=== PATIENT | female | born 1935 | race Caucasian/White ===

== ENCOUNTER → 2018-11-30 | Outpatient (CLI) | payer MEDICARE ==
--- NOTE | 2018-11-30 22:33 | MR ---
EXAMINATION TYPE: MR brain wo con DATE OF EXAM: 11/30/2018 COMPARISON: NONE HISTORY: Dementia without behavioral disturbance TECHNIQUE: Multiplanar, multisequence imaging of the brain and brainstem is performed without IV cont rast. FINDINGS: Diffusion weighted images demonstrate no evidence of a recent infarct or other diffusion abnormality. There is no worrisome extraaxial fluid collection . There is ventricular and sulcal prominence consis tent with diffuse cerebral atrophy. There are scattered foci of T2 hyperintensity seen throughout the superficial, deep, and the periventricular white matter. Midline structures demonstrate normal morphology. The craniocervical junction appears within normal limits. Normal vascular flow voids are present. The visualized sinuses are clear and the globes are i ntact. IMPRESSION: Moderate generalized cerebral atrophy and mild to moderate chronic small vessel ischemic change.
--- NOTE | 2018-12-01 07:23 | US ---
EXAMINATION TYPE: US carotid duplex BILAT DATE OF EXAM: 11/30/2018 COMPARISON: NONE CLINICAL HISTORY: F03.90 Dementia without behavioral disturbance. Dementia. HTN. Hyperlipidemia. EXAM MEASUREMENTS: RIGHT: Peak Systolic Velocity (PSV) cm/sec ----- Right CCA: 61.6 ----- Right ICA: 55.2 ----- Right ECA: 61.6 ICA/CCA ratio: 0.9 RIGHT: End Diastole cm/sec ----- Right CCA: 0.0 ----- Right ICA: 14.0 ----- Right ECA: 1.9 LEFT: Peak Systolic Velocity (PSV) cm/sec ----- Left CCA: 59.8 ----- Left ICA: 69.5 ----- Left ECA: 70.2 ICA/CCA ratio: 1.2 LEFT: End Diastole cm/sec ----- Left CCA: 10.1 ----- Left ICA: 17.5 ----- Left ECA: 0.0 VERTEBRALS (direction of flow): Right Vertebral: Antegrade Left Vertebral: Antegrade Rhythm: Arrhythmia Minimal atherosclerotic changes seen. No elevated velocities obtained. No significant stenosis seen. IMPRESSION: No evidence for hemodynamically significant stenosis. Criteria for Assigning % of Stenosis / Diameter reduction (Estimation based on the indirect measurements of the internal carotid artery velocities (ICA PSV). 1. Normal (no stenosis)=ICA PSV < 125 cm/s: ratio < 2.0: ICA EDV<40 cm/s. 2. Less than 50% stenosis=ICA PSV < 125 cm/s: ratio < 2.0: ICA EDV<40 cm/s. 3. 50 to 69% stenosis=ICA PSV of 125 to 230 cm/s: ration 2.0 ? 4.0: ICA EDV 40-100 cm/s. 4. Greater than 70% stenosis to near occlusion= ICA PSV > 230 cm/s: ratio > 4.0: ICA EDV > 100 cm/s. 5. Near occlusion= ICA PSV velocities may be low or undetectable: variable ratio and ICA EDV. 6. Total occlusion=unable to detect flow.
== END ==
LOC: RADMRIMAIN 16:42
PROVIDERS: ATTEND Physician Assistant Medical
DX: G31.9 Degenerative disease of nervous system, unspecified (principal); I67.82 Cerebral ischemia; F02.80 Dementia in other diseases classified elsewhere, unspecified severity, without behavioral disturbance, psychotic disturbance, mood disturbance, and anxiety; I10 Essential (primary) hypertension; E78.2 Mixed hyperlipidemia; R27.9 Unspecified lack of coordination
CPT/HCPCS: 70551; 93880

== ENCOUNTER → 2022-05-26 | Outpatient (CLI) | payer MEDICARE ==
--- NOTE | 2022-05-26 12:11 | XR ---
EXAMINATION TYPE: XR chest 2V DATE OF EXAM: 05/26/2022 COMPARISON: NONE HISTORY: Shortness of breath TECHNIQUE: Frontal and lateral views of the chest are obtained. FINDINGS: Scattered senescent parenchymal changes noted. Hyperinflation compatible with COPD. No evidence for infiltrate. No evidence for atelectasis. Heart size is stable. Large fixed hiatal hernia. Mediastinal structures are stable and grossly unremarkable. No evidence for hilar prominence. Degenerative changes dorsal spine. IMPRESSION: 1. No evidence for acute pulmonary disease.
== END | disposition home or self-care (01) ==
LOC: RADXRYALE 10:46
PROVIDERS: ATTEND Physician Assistant Medical
DX: R05.9 Cough, unspecified (principal)
CPT/HCPCS: 71046

== ENCOUNTER → 2022-07-14 | Outpatient (CLI) | payer MEDICARE ==
--- NOTE | 2022-07-15 09:53 | MR ---
EXAMINATION TYPE: MR angio head wo con, MR brain wo/w con DATE OF EXAM: 07/14/2022 3:58 PM CLINICAL INDICATION:Female, 86 years old with history of F03.90 DEMENTIA; COMPARISON: MR brain 11/30/2018. Technical: MRA Brain: 3-D [id number] Axial with MIP reconstruction. MRI Brain: Multi planar, multi sequence imaging was performed through the brain including: T1, T2, In version recovery, susceptibility weighted imaging and gradient echo imaging and Diffusion weighted im aging. The patient was then given intravenous contrast and multi planar, T1 fat-saturation images wer e obtained. IV Contrast: None 6 ml cc Gadavist Findings: MRA BRAIN: Vertebral arteries: The vertebral arteries are patent vertebral arteries are codominant. Basilar artery: The basilar artery is intact. The basilar artery bifurcation is normal. Internal Carotid arteries: The cervical, petrous, cavernous and supraclinoid segments are normal. RAFFAELE: Patent with no evidence of aneurysm. ACOM: Present without evidence of aneurysm. MCA: Patent with no evidence of aneurysm. SPOUT POSITIONER: Patent with no evidence of aneurysm. PCOM: Hypoplastic right common normal caliber left. MRI BRAIN: The edgar-white junctions, ventricular system, basal cisterns appear unremarkable. Diffusion-weighted imaging shows no evidence of restricted diffusion to suggest acute/subacute infarct. Intracranial art erial flow voids are maintained. Midline structures show no abnormality. Scattered foci of high T2 si gnal intensity are seen within the periventricular white matter. The susceptibility weighted images d o not reveal any evidence for micro-hemorrhage. After administration of gadolinium, no abnormal enhan cement is seen. The bone marrow signal is within normal limits. Paranasal sinuses and mastoid air cells: Mild scattered paranasal sinus disease. Visualized orbits: Bilateral aphakia IMPRESSION: 1. No evidence of intracranial mass, acute/subacute infarct, or abnormal enhancement. 2. Nonspecific white matter changes, likely related to small vessel ischemic disease 3. No evidence of aneurysm or significant stenosis.
== END | disposition home or self-care (01) ==
LOC: RADMRIMAIN 15:08
PROVIDERS: ATTEND Psychiatry & Neurology Neurology
DX: G93.89 Other specified disorders of brain (principal); F03.90 Unspecified dementia, unspecified severity, without behavioral disturbance, psychotic disturbance, mood disturbance, and anxiety
CPT/HCPCS: 70544; 70553; A9585

== ENCOUNTER 2022-12-26 12:53 | Emergency (ER) | payer MEDICARE ==
[2022-12-26] MEDS ORDERED: ACETAMINOPHEN TAB 500 MG TAB PO STA (13:40)
--- NOTE | 2022-12-26 13:44 | ED ---
General Adult HPI - General Chief complaint: Extremity Injury, Lower Stated complaint: fall - back pain Time Seen by Provider: 12/26/22 13:08 Source: patient, family, EMS, RN notes reviewed Mode of arrival: EMS Limitations: no limitations - History of Present Illness Initial comments: Patient is a pleasant 87-year-old female presenting to the emergency department following a fall. Incident occurred this morning at senior living. Patient has been there for a few weeks secondary to not being able to take care of herself. No new weakness. Patient denies head injury or loss of consciousness. Patient is a poor historian. Daughter provides majority of history. No new weakness. Patient has discomfort of her lower back. No history of chronic similar problems. Discomfort is improving and now only occurs with movement. Patient has not received pain medication. - Related Data Home Medications Medication Instructions Recorded Confirmed Acetaminophen Tab [Tylenol Tab] 500 mg PO Q8H PRN 12/26/22 12/26/22 Cholecalciferol [Vitamin D3 (25 50 mcg PO DAILY 12/26/22 12/26/22 Mcg = 1000 Iu)] LORazepam [Ativan] 0.25 - 0.5 mg PO BID 12/26/22 12/26/22 Multivit-Min/Iron/Folic/Lutein 1 tab PO DAILY 12/26/22 12/26/22 [Centrum Silver Women Tablet] Omeprazole [PriLOSEC] 20 mg PO DAILY PRN 12/26/22 12/26/22 Rivastigmine 9.5MG/24Hr Patch 1 patch TRANSDERM Q24HR 12/26/22 12/26/22 [Exelon 9.5MG/24Hr Patch] amLODIPine [Norvasc] 7.5 mg PO DAILY 12/26/22 12/26/22 lamoTRIgine [LaMICtal] 100 mg PO BID 12/26/22 12/26/22 lisinopriL [Zestril] 20 mg PO DAILY 12/26/22 12/26/22 traZODone HCL [Desyrel] 25 - 50 mg PO HS 12/26/22 12/26/22 Allergies Allergy/AdvReac Type Severity Reaction Status Date / Time No Known Allergies Allergy Verified 12/26/22 13:43 Review of Systems ROS Statement: Those systems with pertinent positive or pertinent negative responses have been documented in the HPI. ROS Other: All systems not noted in ROS Statement are negative. Constitutional: Denies: fever Eyes: Denies: eye pain ENT: Denies: ear pain Respiratory: Denies: cough Cardiovascular: Denies: chest pain Endocrine: Denies: fatigue Gastrointestinal: Denies: abdominal pain Genitourinary: Denies: dysuria Musculoskeletal: Reports: as per HPI, back pain Neurological: Denies: headache, weakness Past Medical History Past Medical History: Cancer, Dementia Additional Past Medical History / Comment(s): hx of colon cancer Past Surgical History: Joint Replacement Past Psychological History: Anxiety, Bipolar Smoking Status: Former smoker Past Alcohol Use History: None Reported Past Drug Use History: None Reported General Exam Limitations: altered mental status General appearance: alert, in no apparent distress Head exam: Present: atraumatic, normocephalic Eye exam: Present: normal appearance, PERRL, EOMI ENT exam: Present: normal oropharynx Neck exam: Present: normal inspection. Absent: tenderness Respiratory exam: Present: normal lung sounds bilaterally Cardiovascular Exam: Present: regular rate, normal rhythm GI/Abdominal exam: Present: soft. Absent: tenderness Extremities exam: Present: normal inspection, full ROM. Absent: tenderness Back exam: Present: tenderness (Mild left sacral tenderness). Absent: vertebral tenderness Neurological exam: Present: alert. Absent: motor sensory deficit Psychiatric exam: Present: normal affect, normal mood Skin exam: Present: normal color Course Vital Signs 12/26/22 12:54 Temperature 98.5 F Pulse Rate 94 Respiratory 16 Rate Blood Pressure 134/77 O2 Sat by Pulse 93 L Oximetry Medical Decision Making - Medical Decision Making Was pt. sent in by a medical professional or institution (, PA, INTERN, urgent care, hospital, or senior living...) When possible be specific @ -Patient was sent from senior living Did you speak to anyone other than the patient for history (EMS, parent, family, police, friend...)? What history was obtained from this source @ -Daughter is present and helps provide majority of history is patient is a poor historian Did you review nursing and triage notes (agree or disagree)? Why? @ -I reviewed and agree with nursing and triage notes Were old charts reviewed (outside hosp., previous admission, EMS record, old EKG, old radiological studies, urgent care reports/EKG's, senior living records)? Report findings @ -No old charts were reviewed Differential Diagnosis (chest pain, altered mental status, abdominal pain women, abdominal pain men, vaginal bleeding, weakness, fever, dyspnea, syncope, headache, dizziness, GI bleed, back pain, seizure, CVA, palpatations, mental health)? @ -not applicable EKG interpreted by me (3pts min.). @ -As above X-rays interpreted by me (1pt min.). @ -X-ray of the lumbar spine, pelvis and sacrum do not reveal acute fracture CT interpreted by me (1pt min.). @ -None done U/S interpreted by me (1pt. min.). @ -None done What testing was considered but not performed or refused? (CT, X-rays, U/S, la bs)? Why? @ -None What meds were considered but not given or refused? Why? @ -None Did you discuss the management of the patient with other professionals (professionals i.e. , PA, INTERN, lab, RT, psych nurse, social insurance specialist, lead setter, teacher, corporate trust officer, casework manager)? Give summary @ -No Was smoking cessation discussed for >3mins.? @ -No Was critical care preformed (if so, how long)? @ -No Were there social determinants of health that impacted care today? How? (Homelessness, low income, unemployed, alcoholism, drug addiction, transportation, low edu. Level, literacy, decrease access to med. care, penitentiary, rehab)? @ -No Was there de-escalation of care discussed even if they declined (Discuss DNR or withdrawal of care, Hospice)? DNR status @ -No What co-morbidities impacted this encounter? (DM, HTN, Smoking, COPD, CAD, Cancer, CVA, ARF, Chemo, Hep., AIDS, mental health diagnosis, sleep apnea, morbid obesity)? @ -None Was patient admitted / discharged? Hospital course, mention meds given and route, prescriptions, significant lab abnormalities, going to OR and other pertinent info. @ -Patient reevaluated. Patient and family updated on results and plan. Patient is resting comfortably in bed however did have some pain with movement and is receptive to Tylenol Undiagnosed new problem with uncertain prognosis? @ -No Drug Therapy requiring intensive monitoring for toxicity (Heparin, Nitro, Insulin, Cardizem)? @ -No Were any procedures done? @ -No Diagnosis/symptom? @ -Fall, sacral contusion Acute, or Chronic, or Acute on Chronic? @ -Acute, acute Uncomplicated (without systemic symptoms) or Complicated (systemic symptoms)? @ -default Side effects of treatment? @ -No Exacerbation, Progression, or Severe Exacerbation? @ -No Poses a threat to life or bodily function? How? (Chest pain, [place], [place], pneumonia, PE, COPD, DKA, ARF, appy, cholecystitis, CVA, Diverticulitis, Homicidal, Suicidal, threat to staff... and all critical care pts) @ -No Disposition Clinical Impression: Fall, Sacral contusion Disposition: HOME SELF-CARE Condition: Stable Instructions (If sedation given, give patient instructions): Fall Prevention for Older Adults (ED), Contusion in Adults (ED) Additional Instructions: [id number] Tylenol as needed. Please do follow-up to primary care physician in the next couple days for recheck. Return for increased pain, weakness, worsening or changing symptoms or other concerns. Is patient prescribed a controlled substance at d/c from ED?: No Referrals: Dennis Hendricks DO [Primary Care Provider] - 1-2 days Time of Disposition: 15:14
--- NOTE | 2022-12-26 14:31 | XR ---
EXAMINATION TYPE: XR pelvis AP view DATE OF EXAM: 12/26/2022 CLINICAL HISTORY: pain TECHNIQUE: Single view the pelvis is submitted. FINDINGS: No evidence for fracture, dislocation or bony lesion. Joint spaces are well-preserved. S I joints appear symmetric. IMPRESSION: 1. No acute fracture or dislocation seen. ICD 10 NO FRACTURE, INITIAL EVALUATION
--- NOTE | 2022-12-26 14:32 | XR ---
EXAMINATION TYPE: XR sacrum coccyx DATE OF EXAM: 12/26/2022 CLINICAL HISTORY: pain TECHNIQUE: Three views of the sacrum and coccyx are submitted. COMPARISON: None Sacral alae appear symmetric. No evidence for fracture or bony lesion. Sacroiliac joints are within normal limits. Visualized coccygeal segments are free of fracture or lesion. IMPRESSION: Normal study
--- NOTE | 2022-12-26 14:35 | XR ---
EXAMINATION TYPE: XR lumbar spine 2 or 3V DATE OF EXAM: 12/26/2022 CLINICAL HISTORY: pain TECHNIQUE: Three views of the lumbar spine are submitted. COMPARISON: None. FINDINGS: Rotoscoliosis convex to the right. There are 5 lumbar type vertebral bodies identified. The lumbar s pine shows satisfactory alignment without evidence of acute fracture or dislocation. Vertebral body h eights are within normal limits. Moderate degenerative disc space narrowing and spondylosis. The o verlying soft tissue appears unremarkable. IMPRESSION: No acute fracture or dislocation is seen in the lumbar spine. ICD 10 NO FRACTURE, INITIAL EVALUATION
[2022-12-26 15:29] VITALS: BP 125/74; PULSE 83; RESP 14; TEMP 98.1
== END 2022-12-26 15:29 | disposition home or self-care (01) ==
LOC: EC 12:53
DX: S30.0XXA Contusion of lower back and pelvis, initial encounter (principal); Z87.891 Personal history of nicotine dependence; W19.XXXA Unspecified fall, initial encounter; Y92.129 Unspecified place in nursing home as the place of occurrence of the external cause
CPT/HCPCS: 72100; 72170; 72220; 99284

== ENCOUNTER 2023-02-25 05:37 | Emergency (ER) | payer MEDICARE ==
[2023-02-25] MEDS ORDERED: ACETAMINOPHEN TAB 500 MG TAB PO STA (05:58)
[2023-02-25] MEDS ORDERED: DIPH,PERTUS(ACELL)TETVAC-LF 0.5 ML VIAL IM ONE (06:13)
[2023-02-25] MEDS ORDERED: LIDOCAINE 1% INJ 10MG/ML (20 ML MDV) SQ ONE (06:13)
--- NOTE | 2023-02-25 06:14 | ED ---
Fall HPI - General Chief Complaint: Fall Stated Complaint: Fall Time Seen by Provider: 02/25/23 05:54 Source: family (daughters), EMS, old records reviewed (Records from [facility]) Mode of arrival: EMS - History of Present Illness Initial Comments: Patient is an 87-year-old female presenting to the emergency room via EMS after being found at her assisted living laying on the floor in her doorway. She has a past site of dementia and is a poor historian. Her time on the ground or loss of consciousness status is unknown. C-collar was applied by EMS. According to the daughters the patient is at her mental status plate baseline with occasional irritability. She is only complaining of pain in her head where she has a laceration. She denies any extremity pain. In addition to her dementia history she past medical history significant for colon cancer. - Related Data Home Medications Medication Instructions Recorded Confirmed Acetaminophen Tab [Tylenol Tab] 500 mg PO Q8H PRN 12/26/22 12/26/22 Cholecalciferol [Vitamin D3 (25 50 mcg PO DAILY 12/26/22 12/26/22 Mcg = 1000 Iu)] LORazepam [Ativan] 0.25 - 0.5 mg PO BID 12/26/22 12/26/22 Multivit-Min/Iron/Folic/Lutein 1 tab PO DAILY 12/26/22 12/26/22 [Centrum Silver Women Tablet] Omeprazole [PriLOSEC] 20 mg PO DAILY PRN 12/26/22 12/26/22 Rivastigmine 9.5MG/24Hr Patch 1 patch TRANSDERM Q24HR 12/26/22 12/26/22 [Exelon 9.5MG/24Hr Patch] amLODIPine [Norvasc] 7.5 mg PO DAILY 12/26/22 12/26/22 lamoTRIgine [LaMICtal] 100 mg PO BID 12/26/22 12/26/22 lisinopriL [Zestril] 20 mg PO DAILY 12/26/22 12/26/22 traZODone HCL [Desyrel] 25 - 50 mg PO HS 12/26/22 12/26/22 Allergies Allergy/AdvReac Type Severity Reaction Status Date / Time No Known Allergies Allergy Verified 12/26/22 13:43 Review of Systems ROS Statement: Those systems with pertinent positive or pertinent negative responses have been documented in the HPI. ROS Other: All systems not noted in ROS Statement are negative. Past Medical History Past Medical History: Cancer, Dementia Additional Past Medical History / Comment(s): hx of colon cancer Past Surgical History: Joint Replacement Past Psychological History: Anxiety, Bipolar Smoking Status: Former smoker Past Alcohol Use History: None Reported Past Drug Use History: None Reported General Exam Limitations: no limitations General appearance: alert, in no apparent distress Head exam: Present: normocephalic Expanded Head exam: Present: laceration (mid anterior scalp 4 cm). Absent: abrasion, hematoma, general tenderness Eye exam: Present: normal appearance, PERRL. Absent: scleral icterus, conjunctival injection, periorbital swelling, periorbital tenderness ENT exam: Present: normal exam, mucous membranes moist Neck exam: Present: other (C collar intact) Respiratory exam: Present: normal lung sounds bilaterally. Absent: respiratory distress, wheezes, rales, rhonchi, stridor Cardiovascular Exam: Present: regular rate, normal rhythm, normal heart sounds, systolic murmur. Absent: diastolic murmur, rubs, gallop, clicks GI/Abdominal exam: Present: soft, normal bowel sounds. Absent: distended, tenderness, guarding, rebound, rigid Extremities exam: Present: normal inspection. Absent: pedal edema, joint swelling Back exam: Present: normal inspection. Absent: tenderness Neurological exam: Present: alert. Absent: oriented X3 Expanded Patient oriented to: Present: person Psychiatric exam: Present: agitated (at times), flat affect Skin exam: Present: other (laceration as above). Absent: rash Course Vital Signs 02/25/23 02/25/23 05:38 06:25 Temperature 97.7 F Pulse Rate 72 74 Respiratory 18 18 Rate Blood Pressure 171/87 161/97 O2 Sat by Pulse 94 L 95 Oximetry Procedures - Laceration Laceration #1 Indication: laceration Site: scalp Size (cm): 4 Description: linear Depth: simple, single layer Anesthetic Used: lidocaine 1% Anesthesia Technique: local infiltration Pre-repair: wound explored, irrigated extensively, deep structures intact Size of Sutures: other (dario) Number of Sutures: 8 Patient Tolerated Procedure: well, no complications Medical Decision Making - Medical Decision Making Was pt. sent in by a medical professional or institution (Dr., PA, COUNTY RECORDS MANAGEMENT OFFICER, urgent care, hospital, or skilled nursing...) When possible be specific @ -No Did you speak to anyone other than the patient for history (EMS, parent, family, police, friend...)? What history was obtained from this source @ -No Did you review nursing and triage notes (agree or disagree)? Why? @ -I reviewed and agree with nursing and triage notes Were old charts reviewed (outside hosp., previous admission, EMS record, old EKG, old radiological studies, urgent care reports/EKG's, skilled nursing records)? Report findings @ -No old charts were reviewed Differential Diagnosis (chest pain, altered mental status, abdominal pain women, abdominal pain men, vaginal bleeding, weakness, fever, dyspnea, syncope, head ache, dizziness, GI bleed, back pain, seizure, CVA, palpatations, mental health, musculoskeletal)? @ -not applicable EKG interpreted by me (3pts min.). @ -Sinus rhythm with short UT interval. Ventricular rate 78 bpm, UT interval 104 ms, QRS duration 89 ms, QT/QTC 377/410 ms, PRT axes -6, 55, 57 X-rays interpreted by me (1pt min.). @ -Chest x-ray: Cardiomegaly no evidence of consolidation, pleural effusion or pneumothorax X-ray pelvis and bilateral hips: Osteoarthritis no fracture or subluxation CT interpreted by me (1pt min.). @ -CT brain and cervical spine without contrast: No cervical spine fracture or subluxation. No acute intracranial process, no bleed, mass or shift. Chronic white by her changes U/S interpreted by me (1pt. min.). @ -None done What testing was considered but not performed or refused? (CT, X-rays, U/S, labs)? Why? @ -None What meds were considered but not given or refused? Why? @ -None Did you discuss the management of the patient with other professionals (professionals i.e. CHINO Rene, [employer] OFFICER, lab, RT, psych nurse, nursing home social worker, sheetmetal worker, teacher, eeo officer, field nurse case manager)? Give summary @ -No Was smoking cessation discussed for >3mins.? @ -No Was critical care preformed (if so, how long)? @ -No Were there social determinants of health that impacted care today? How? (Homelessness, low income, unemployed, alcoholism, drug addiction, transportation, low edu. Level, literacy, decrease access to med. care, assisted, rehab)? @ -No Was there de-escalation of care discussed even if they declined (Discuss DNR or withdrawal of care, Hospice)? DNR status @ -No What co-morbidities impacted this encounter? (DM, HTN, Smoking, COPD, CAD, Cancer, CVA, ARF, Chemo, Hep., AIDS, mental health diagnosis, sleep apnea, morb id obesity)? @ -None Was patient admitted / discharged? Hospital course, mention meds given and route, prescriptions, significant lab abnormalities, going to OR and other pertinent info. @ -87-year-old female found on the ground at her assisted living with unknown downtime unknown loss of consciousness with baseline of history of dementia with alert and oriented status 1 with agitation at times. Due to unknown downtime will obtain laboratory studies a CBC, CMP, lactic acid and creatinine kinase along with EKG, chest x-ray, x-ray of pelvis and hips and CT of the brain and cervical spine. Tylenol given for pain. Laboratory studies are all normal including CBC, coags, creatinine kinase CMP and lactic acid with the exception of BUN which is elevated at 31 within normal creatinine chest x-ray, x-ray of hips and pelvis all negative for fracture or dislocations. CT of the brain and cervical spine negative for acute fractures or intracranial process. [place] placed to laceration mid scalp. Above findings discussed with daughters at bedside. No indication for further diagnostic imaging or laboratory studies. Questions and concerns answered. Return parameters the emergency room discussed including return in 7-10 days for staple removal. Will discharge back to assisted living in the care of her daughters in stable condition with sutures intact to scalp laceration advising fall precautions and follow-up with her primary care provider. Undiagnosed new problem with uncertain prognosis? @ -No Drug Therapy requiring intensive monitoring for toxicity (Heparin, Nitro, Insulin, Cardizem)? @ -No Were any procedures done? @ -Yes laceration closure see procedures for details. Diagnosis/symptom? @ -Fall Acute, or Chronic, or Acute on Chronic? @ -Acute Uncomplicated (without systemic symptoms) or Complicated (systemic symptoms)? @ -Uncomplicated Side effects of treatment? @ -No Exacerbation, Progression, or Severe Exacerbation? @ -No Poses a threat to life or bodily function? How? (Chest pain, [place], [place], pneumonia, PE, COPD, DKA, ARF, appy, cholecystitis, CVA, Diverticulitis, Homicidal, Suicidal, threat to staff... and all critical care pts) @ -No Diagnosis/symptom? @ -Laceration to the scalp Acute, or Chronic, or Acute on Chronic? @ -Acute Uncomplicated (without systemic symptoms) or Complicated (systemic symptoms)? @ -Uncomplicated Side effects of treatment? @ -none Exacerbation, Progression, or Severe Exacerbation] @ -no Poses a threat to life or bodily function? @ -no Case discussed with Dr. Zhou - Lab Data Result diagrams: 02/25/23 06:05 02/25/23 06:05 Lab Results 02/25/23 02/25/23 02/25/23 Range/Units 06:05 06:05 06:05 WBC 7.5 (3.8-10.6) k/uL RBC 4.57 (3.80-5.40) m/uL Hgb 14.7 (11.4-16.0) gm/dL Hct 44.1 (34.0-46.0) % MCV 96.5 (80.0-100.0) fL MCH 32.1 (25.0-35.0) pg MCHC 33.3 (31.0-37.0) g/dL RDW 13.2 (11.5-15.5) % Plt Count 269 (150-450) k/uL MPV 7.0 Neutrophils % 65 % Lymphocytes % 22 % Monocytes % 6 % Eosinophils % 3 % Basophils % 1 % Neutrophils # 4.9 (1.3-7.7) k/uL Lymphocytes # 1.7 (1.0-4.8) k/uL Monocytes # 0.5 (0-1.0) k/uL Eosinophils # 0.2 (0-0.7) k/uL Basophils # 0.1 (0-0.2) k/uL PT (9.0-12.0) sec INR (<1.2) Sodium 139 (137-145) mmol/L Potassium 3.7 (3.5-5.1) mmol/L Chloride 101 (98-107) mmol/L Carbon Dioxide 30 (22-30) mmol/L Anion Gap 8 mmol/L BUN 31 H (7-17) mg/dL Creatinine 0.60 (0.52-1.04) mg/dL Est GFR (CKD-EPI)AfAm >90 (>60 ml/min/1.73 sqM) Est GFR (CKD-EPI)NonAf 84 (>60 ml/min/1.73 sqM) Glucose 85 (74-99) mg/dL Plasma Lactic Acid Abhinav 1.2 (0.7-2.0) mmol/L Calcium 8.9 (8.4-10.2) mg/dL Total Bilirubin 0.7 (0.2-1.3) mg/dL AST 24 (14-36) U/L ALT 17 (4-34) U/L Alkaline Phosphatase 97 (38-126) U/L Creatine Kinase (30-135) U/L Total Protein 6.5 (6.3-8.2) g/dL Albumin 3.8 (3.5-5.0) g/dL 02/25/23 02/25/23 Range/Units 06:05 06:05 WBC (3.8-10.6) k/uL RBC (3.80-5.40) m/uL Hgb (11.4-16.0) gm/dL Hct (34.0-46.0) % MCV (80.0-100.0) fL MCH (25.0-35.0) pg MCHC (31.0-37.0) g/dL RDW (11.5-15.5) % Plt Count (150-450) k/uL MPV Neutrophils % % Lymphocytes % % Monocytes % % Eosinophils % % Basophils % % Neutrophils # (1.3-7.7) k/uL Lymphocytes # (1.0-4.8) k/uL Monocytes # (0-1.0) k/uL Eosinophils # (0-0.7) k/uL Basophils # (0-0.2) k/uL PT 10.1 (9.0-12.0) sec INR 1.0 (<1.2) Sodium (137-145) mmol/L Potassium (3.5-5.1) mmol/L Chloride (98-107) mmol/L Carbon Dioxide (22-30) mmol/L Anion Gap mmol/L BUN (7-17) mg/dL Creatinine (0.52-1.04) mg/dL Est GFR (CKD-EPI)AfAm (>60 ml/min/1.73 sqM) Est GFR (CKD-EPI)NonAf (>60 ml/min/1.73 sqM) Glucose (74-99) mg/dL Plasma Lactic Acid Abhinav (0.7-2.0) mmol/L Calcium (8.4-10.2) mg/dL Total Bilirubin (0.2-1.3) mg/dL AST (14-36) U/L ALT (4-34) U/L Alkaline Phosphatase (38-126) U/L Creatine Kinase 41 (30-135) U/L Total Protein (6.3-8.2) g/dL Albumin (3.5-5.0) g/dL - Radiology Data Radiology results: report reviewed, image reviewed Disposition Clinical Impression: Fall, Laceration of scalp without complication Disposition: HOME SELF-CARE Condition: Stable Instructions (If sedation given, give patient instructions): Laceration (ED), Fall Prevention for Older Adults (ED), Head Injury (ED) Additional Instructions: Please keep wound clean and dry. Monitor for signs and symptoms of infection and seek medical attention as appropriate if symptoms occur. Please return to the emergency department for staple removal in 7-10 days.Fall precautions r ecommended including the use of assistive devices such as a cane or walker.Please return to the Emergency Department if symptoms worsen or any other concerns. Is patient prescribed a controlled substance at d/c from ED?: No Referrals: Dennis Hendricks DO [Primary Care Provider] - 1-2 days Time of Disposition: 07:43
[2023-02-25 06:19] LABS: Basophils # (A) 0.1 k/uL (0-0.2); Basophils % (A) 1 %; Eosinophils # (A) 0.2 k/uL (0-0.7); Eosinophils % (A) 3 %; HCT 44.1 % (34.0-46.0); HGB 14.7 gm/dL (11.4-16.0); Lymphocytes # (A) 1.7 k/uL (1.0-4.8); Lymphocytes % (A) 22 %; MCH 32.1 pg (25.0-35.0); MCHC 33.3 g/dL (31.0-37.0); MCV 96.5 fL (80.0-100.0); Monocytes # (A) 0.5 k/uL (0-1.0); Monocytes % (A) 6 %; Neutrophils # (A) 4.9 k/uL (1.3-7.7); Neutrophils % (A) 65 %; Platelet Count 269 k/uL (150-450); RBC 4.57 m/uL (3.80-5.40); RDW 13.2 % (11.5-15.5); WBC 7.5 k/uL (3.8-10.6)
[2023-02-25 06:31] VITALS: RESP 18
[2023-02-25 06:31] LABS: ALT 17 U/L (4-34); AST 24 U/L (14-36); African American GFR (CKD) >90 (>60 ml/min/1.73 sqM); Albumin 3.8 g/dL (3.5-5.0); Alkaline Phosphatase 97 U/L (38-126); Anion Gap 8 mmol/L; Blood Urea Nitrogen 31 mg/dL (7-17); Calcium 8.9 mg/dL (8.4-10.2); Carbon Dioxide 30 mmol/L (22-30); Chloride 101 mmol/L (98-107); Glucose 85 mg/dL (74-99); Non-African American GFR(CKD) 84 (>60 ml/min/1.73 sqM); Potassium 3.7 mmol/L (3.5-5.1); Sodium 139 mmol/L (137-145); Total Bilirubin 0.7 mg/dL (0.2-1.3); Total Protein 6.5 g/dL (6.3-8.2)
[2023-02-25 06:44] LABS: Prothrombin Time 10.1 sec (9.0-12.0)
[2023-02-25] MEDS ORDERED: SODIUM CHLORIDE 0.9% 1,000 ML IV STA (06:48)
--- NOTE | 2023-02-25 07:24 | XR ---
EXAMINATION TYPE: XR Hip Bilateral and AP pelvis DATE OF EXAM: 02/25/2023 COMPARISON: None HISTORY: Fall, pain TECHNIQUE: AP pelvis and two-view bilateral hips FINDINGS: Femoral heads articulate with the acetabulum. Joint spaces are preserved. No acute fractur es or dislocations are evident. Sacroiliac joints and symphysis pubis are normal. Follow up exams can be performed as clinically indicated. IMPRESSION: 1. No acute osseous abnormality bilateral hips and AP pelvis
--- NOTE | 2023-02-25 07:26 | XR ---
EXAMINATION TYPE: XR chest 1V DATE OF EXAM: 02/25/2023 COMPARISON: 05/26/2022 INDICATION: Fall, pain TECHNIQUE: Single frontal view of the chest is obtained. FINDINGS: The heart size is upper limits of normal. The pulmonary vasculature is normal. The lungs are clear. Previous hiatal hernia is not as well visualized. IMPRESSION: 1. No acute pulmonary process.
--- NOTE | 2023-02-25 07:29 | CT ---
EXAMINATION TYPE: CT brain renny wo con DATE OF EXAM: 02/25/2023 COMPARISON: None HISTORY: fall CT DLP: 2265.4 mGycm, Automated exposure control for dose reduction was used. CONTRAST: None CT of the brain is performed utilizing 3 mm thick sections through the posterior fossa and 3 mm thick sections through the remaining calvarium. Study is performed within 24 hours of arrival to the hospital. No abnormal hyperdensity is present to suggest an acute intracranial hemorrhage. No mass lesion is evident. No acute infarcts are evident. There is some periventricular white matter hypodensity, likely on the basis of chronic white matter ischemic changes. Ventricles and sulci are appropriate for the patient age. Paranasal sinuses and mastoid air cells within the [id number] are clear. IMPRESSIONS: 1. No acute intracranial process. Follow-up MRI can be performed as clinically indicated. 2. Chronic appearing periventricular white matter ischemic-type changes. CT cervical spine. COMPARISON: None CT of the cervical spine is performed in the axial plane at 2 mm thick sections. Reconstructed image s in the coronal, and sagittal plane are reviewed on the computer. No acute fractures are evident. Vertebral body alignment is normal. There is loss of disc height C2-3 narrowing at C4-5 C5-6. Posterior disc space narrowing at C6-7. Vertebral body heights are preserved. No spinal canal stenosis is evident. Uncovertebral joint hypertrophy has moderate bilateral foraminal narrowing at C5-6. Emphysematous changes are noted in the upper lung mayo. IMPRESSIONS: 1. No acute osseous abnormalities cervical spine. 2. Degenerative disc changes.
[2023-02-25 08:18] VITALS: BP 168/90; PULSE 72; TEMP 98.3
== END 2023-02-25 08:00 | disposition home or self-care (01) ==
LOC: EC 05:37
DX: S01.01XA Laceration without foreign body of scalp, initial encounter (principal); M47.812 Spondylosis without myelopathy or radiculopathy, cervical region; M48.02 Spinal stenosis, cervical region; F41.9 Anxiety disorder, unspecified; F31.9 Bipolar disorder, unspecified; Z87.891 Personal history of nicotine dependence; Z79.899 Other long term (current) drug therapy; Z23 Encounter for immunization; W18.30XA Fall on same level, unspecified, initial encounter
CPT/HCPCS: 36415; 93005; 80053; 82550; 83605; 85025; 85610; 73521; 71045; 72125; 70450; 90715; 99285; 90471; 96372; 12002; J2001

== ENCOUNTER 2023-02-28 21:17 | Inpatient (IN) | payer MEDICARE ==
--- NOTE | 2023-02-28 21:53 | ED ---
Fall HPI - General Chief Complaint: Fall Stated Complaint: Fall Time Seen by Provider: 02/28/23 21:25 Source: EMS, RN notes reviewed, old records reviewed Mode of arrival: EMS Limitations: no limitations - History of Present Illness Initial Comments: This is an 87-year-old female to the emergency room for evaluation of a fall. Patient has severe dementia unable to provide accurate history. Patient was found on the ground by staff and family. Patient does appear to have deformity of left hip MD Complaint: fall -: days(s) Fall From: standing When Fall Occurred: 1 hour [employer] Fall Witnessed: yes, by family Place Fall Occurred: home Loss of Consciousness: none Prolonged Down Time?: no Symptoms Prior to Fall: none Location: pelvis Location - Extremities: Left: Thigh Severity: severe Severity scale (1-10): 10 Quality: stabbing Context: tripped/slipped Associated Symptoms: denies - Related Data Home Medications Medication Instructions Recorded Confirmed Cholecalciferol [Vitamin D3 (25 50 mcg PO DAILY 12/26/22 03/01/23 Mcg = 1000 Iu)] Multivit-Min/Iron/Folic/Lutein 1 tab PO DAILY 12/26/22 03/01/23 [Centrum Silver Women Tablet] Omeprazole [PriLOSEC] 20 mg PO DAILY PRN 12/26/22 03/01/23 Rivastigmine 9.5MG/24Hr Patch 1 patch TRANSDERM Q24HR 12/26/22 03/01/23 [Exelon 9.5MG/24Hr Patch] amLODIPine [Norvasc] 5 mg PO DAILY 12/26/22 03/01/23 lamoTRIgine [LaMICtal] 100 mg PO BID 12/26/22 03/01/23 lisinopriL [Zestril] 20 mg PO DAILY 12/26/22 03/01/23 Atorvastatin [Lipitor] 10 mg PO HS 03/01/23 03/01/23 Divalproex [Depakote] 250 mg PO BID 03/01/23 03/01/23 Ensure 1 can PO BID 03/01/23 03/01/23 Previous Rx's Medication Instructions Recorded Enoxaparin [Lovenox] 40 mg SQ DAILY #28 each 03/04/23 HYDROcodone/APAP 5-325MG [[place] 1 tab PO Q6HR PRN #21 tab 03/04/23 5-325] Sennosides/Docusate Sodium [Senna 1 each PO DAILY #20 cap 03/04/23 Plus 8.6-50 mg Softgel] Allergies Allergy/AdvReac Type Severity Reaction Status Date / Time No Known Allergies Allergy Verified 03/08/23 12:50 Review of Systems ROS Statement: Those systems with pertinent positive or pertinent negative responses have been documented in the HPI. ROS Other: All systems not noted in ROS Statement are negative. Past Medical History Past Medical History: Cancer, Dementia Additional Past Medical History / Comment(s): hx of colon cancer Past Surgical History: Joint Replacement Past Psychological History: Anxiety, Bipolar Smoking Status: Former smoker Past Alcohol Use History: None Reported Past Drug Use History: None Reported General Exam General appearance: alert, in no apparent distress Head exam: Present: atraumatic, normocephalic, normal inspection Eye exam: Present: normal appearance, PERRL, EOMI. Absent: scleral icterus, conjunctival injection, periorbital swelling ENT exam: Present: normal exam, mucous membranes moist Neck exam: Present: normal inspection. Absent: tenderness, meningismus, lymphadenopathy Respiratory exam: Present: normal lung sounds bilaterally. Absent: respiratory distress, wheezes, rales, rhonchi, stridor Cardiovascular Exam: Present: regular rate, normal rhythm, normal heart sounds. Absent: systolic murmur, diastolic murmur, rubs, gallop, clicks GI/Abdominal exam: Present: soft, normal bowel sounds. Absent: distended, tenderness, guarding, rebound, rigid Extremities exam: Present: normal inspection, full ROM, normal capillary refill. Absent: tenderness, pedal edema, joint swelling, calf tenderness Back exam: Present: normal inspection Neurological exam: Present: alert, oriented X3, CN II-XII intact Psychiatric exam: Present: normal affect, normal mood Skin exam: Present: warm, dry, intact, normal color. Absent: rash Course Vital Signs 02/28/23 02/28/23 02/28/23 21:21 22:29 23:00 Temperature 97.8 F Pulse Rate 57 L 60 68 Respiratory 18 18 18 Rate Blood Pressure 138/70 133/63 132/64 O2 Sat by Pulse 99 98 99 Oximetry 03/01/23 00:00 Temperature Pulse Rate 64 Respiratory 18 Rate Blood Pressure 130/70 O2 Sat by Pulse 99 Oximetry - Reevaluation(s) Reevaluation #1: 02/28/23 21:58 Medical records reviewed Reevaluation #2: 02/28/23 22:53 Patient symptoms are improved Reevaluation #3: Patient informed of results and questions answered Reevaluation #4: 02/28/23 22:54 Was pt. sent in by a medical professional or institution ([facility], [employer], urgent care, hospital, or [facility]...) When possible be specific @ -no Did you speak to anyone other than the patient for history (EMS, parent, family, police, friend...)? What history was obtained from this source @ -no Did you review nursing and triage notes (agree or disagree)? Why? @ -agree Are old charts reviewed (outside hosp., previous admission, EMS record, old EKG, old radiological studies, urgent care reports/EKG's, [facility] records)? Report findings @ -yes Differential Diagnosis (chest pain, altered mental status, abdominal pain women, abdominal pain men, vaginal bleeding, weakness, fever, dyspnea, syncope, headache, dizziness, GI bleed, back pain, seizure, CVA, palpatations, mental health, musculoskeletal)? @ -prior EKG interpreted by me (3pts min.). @ -yes X-rays interpreted by me (1pt min.). @ -yes CT interpreted by me (1pt min.). @ -yes U/S interpreted by me (1pt. min.). @ -no What testing was considered but not performed or refused? (CT, X-rays, U/S, labs)? Why? @ -none What meds were considered but not given or refused? Why? @ -none Did you discuss the management of the patient with other professionals (professionals i.e. [facility]ene, [employer]IC[employer]OR, lab, RT, psych nurse, social and political studies professor, him specialists, teacher, special assets officer, caser shoe parts)? Give summary @ -no Was smoking cessation discussed for >3mins.? @ -no Was critical care preformed (if so, how long)? @ -no Were there social determinants of health that impacted care today? How? (Homelessness, low income, unemployed, alcoholism, drug addiction, transportation, low edu. Level, literacy, decrease access to med. care, residential, rehab)? @ -none Was there de-escalation of care discussed even if they declined (Discuss DNR or withdrawal of care, Hospice)? DNR status @ -no What co-morbidities impacted this encounter? (DM, HTN, Smoking, COPD, CAD, Cancer, CVA, ARF, Chemo, Hep., AIDS, mental health diagnosis, sleep apnea, mo rbid obesity)? @ -none Was patient admitted / discharged? Hospital course, mention meds given and r oute, prescriptions, significant lab abnormalities, going to OR and other pertinent info. @ - 87 male will be admitted for fall. Patient has fall with left hip fracture patient does have positive RT fracture left hip will admit for orthopedic evaluation and treatment Discharge Undiagnosed new problem with uncertain prognosis? @ -no Drug Therapy requiring intensive monitoring for toxicity (Heparin, Nitro, Insulin, Cardizem)? @ -no Were any procedures done? @ -no Diagnosis/symptom? @ -Left hip fracture Acute, or Chronic, or Acute on Chronic? @ -Acute Uncomplicated (without systemic symptoms) or Complicated (systemic symptoms)? @ -Complicated Side effects of treatment? @ -no Exacerbation, Progression, or Severe Exacerbation? @ -exacerbation Poses a threat to life or bodily function? How? (Chest pain, USA, GA, pneumonia, PE, COPD, DKA, ARF, appy, cholecystitis, CVA, Diverticulitis, Homicidal, Suicidal, threat to staff... and all critical care pts) @ -yes with extreme of age with hip fracture Reevaluation #5: 02/28/23 22:54 Differential Weakness: Hypoglycemia, shock, sepsis, hyponatremia, anemia, infection, GA, ETOH, adverse medicine reaction, overdose, stroke, this is not meant to be an all-inclusive list. - Consultations Consultation #1: Spoke with orthopedic surgery on-call who except patient for admission Medical Decision Making - Medical Decision Making 87 male will be admitted for fall. Patient has fall with left hip fracture patient does have positive RT fracture left hip will admit for orthopedic evaluation and treatment - Lab Data Result diagrams: 03/02/23 06:33 03/02/23 06:33 Lab Results 02/28/23 02/28/23 02/28/23 Range/Units 21:43 21:43 21:43 WBC 7.1 (3.8-10.6) k/uL RBC 4.14 (3.80-5.40) m/uL Hgb 13.6 (11.4-16.0) gm/dL Hct 40.0 (34.0-46.0) % MCV 96.6 (80.0-100.0) fL MCH 32.8 (25.0-35.0) pg MCHC 34.0 (31.0-37.0) g/dL RDW 13.3 (11.5-15.5) % Plt Count 263 (150-450) k/uL MPV 7.4 Neutrophils % 72 % Lymphocytes % 18 % Monocytes % 6 % Eosinophils % 2 % Basophils % 1 % Neutrophils # 5.2 (1.3-7.7) k/uL Lymphocytes # 1.3 (1.0-4.8) k/uL Monocytes # 0.4 (0-1.0) k/uL Eosinophils # 0.2 (0-0.7) k/uL Basophils # 0.0 (0-0.2) k/uL PT 10.1 (9.0-12.0) sec INR 1.0 (<1.2) APTT 23.5 (22.0-30.0) sec Sodium 136 L (137-145) mmol/L Potassium 3.8 (3.5-5.1) mmol/L Chloride 103 (98-107) mmol/L Carbon Dioxide 30 (22-30) mmol/L Anion Gap 3 mmol/L BUN 23 H (7-17) mg/dL Creatinine 0.54 (0.52-1.04) mg/dL Est GFR (CKD-EPI)AfAm >90 (>60 ml/min/1.73 sqM) Est GFR (CKD-EPI)NonAf 86 (>60 ml/min/1.73 sqM) Glucose 117 H (74-99) mg/dL Plasma Lactic Acid Abhinav (0.7-2.0) mmol/L Calcium 8.0 L (8.4-10.2) mg/dL Phosphorus 3.6 (2.5-4.5) mg/dL Magnesium 1.9 (1.6-2.3) mg/dL Total Bilirubin 0.7 (0.2-1.3) mg/dL AST 34 (14-36) U/L ALT 20 (4-34) U/L Alkaline Phosphatase 83 (38-126) U/L Troponin I (0.000-0.034) ng/mL NT-Pro-B Natriuret Pep 115 pg/mL Total Protein 5.7 L (6.3-8.2) g/dL Albumin 3.1 L (3.5-5.0) g/dL 02/28/23 02/28/23 Range/Units 21:43 21:43 WBC (3.8-10.6) k/uL RBC (3.80-5.40) m/uL Hgb (11.4-16.0) gm/dL Hct (34.0-46.0) % MCV (80.0-100.0) fL MCH (25.0-35.0) pg MCHC (31.0-37.0) g/dL RDW (11.5-15.5) % Plt Count (150-450) k/uL MPV Neutrophils % % Lymphocytes % % Monocytes % % Eosinophils % % Basophils % % Neutrophils # (1.3-7.7) k/uL Lymphocytes # (1.0-4.8) k/uL Monocytes # (0-1.0) k/uL Eosinophils # (0-0.7) k/uL Basophils # (0-0.2) k/uL PT (9.0-12.0) sec INR (<1.2) APTT (22.0-30.0) sec Sodium (137-145) mmol/L Potassium (3.5-5.1) mmol/L Chloride (98-107) mmol/L Carbon Dioxide (22-30) mmol/L Anion Gap mmol/L BUN (7-17) mg/dL Creatinine (0.52-1.04) mg/dL Est GFR (CKD-EPI)AfAm (>60 ml/min/1.73 sqM) Est GFR (CKD-EPI)NonAf (>60 ml/min/1.73 sqM) Glucose (74-99) mg/dL Plasma Lactic Acid Abhinav 0.9 (0.7-2.0) mmol/L Calcium (8.4-10.2) mg/dL Phosphorus (2.5-4.5) mg/dL Magnesium (1.6-2.3) mg/dL Total Bilirubin (0.2-1.3) mg/dL AST (14-36) U/L ALT (4-34) U/L Alkaline Phosphatase (38-126) U/L Troponin I <0.012 (0.000-0.034) ng/mL NT-Pro-B Natriuret Pep pg/mL Total Protein (6.3-8.2) g/dL Albumin (3.5-5.0) g/dL - EKG Data -: EKG Interpreted by Me (EKG is sinus bradycardia 56 NE 186 QRS 82 QTC 423) - Radiology Data Radiology results: report reviewed (CT brain C-spine chest x-ray and pelvis x- ray to show positive left IT hip fracture), image reviewed Disposition Clinical Impression: Fall, Closed left hip fracture, Dementia Disposition: ADMITTED IP TO THIS [facility] Condition: Fair Is patient prescribed a controlled substance at d/c from ED?: No
[2023-02-28] MEDS ORDERED: SODIUM CHLORIDE 0.9% 500 ML 500 ML IV STA (21:57)
[2023-02-28] MEDS ORDERED: SODIUM CHLORIDE 0.9% 1,000 ML IV STA (21:57)
[2023-02-28] MEDS ORDERED: MORPHINE SULFATE 4 MG/ML SYRINGE IV STA (21:57)
[2023-02-28 22:12] LABS: ALT 20 U/L (4-34); African American GFR (CKD) >90 (>60 ml/min/1.73 sqM); Albumin 3.1 g/dL (3.5-5.0); Anion Gap 3 mmol/L; Basophils % (A) 1 %; Blood Urea Nitrogen 23 mg/dL (7-17); Carbon Dioxide 30 mmol/L (22-30); Chloride 103 mmol/L (98-107); Eosinophils # (A) 0.2 k/uL (0-0.7); Eosinophils % (A) 2 %; Glucose 117 mg/dL (74-99); HGB 13.6 gm/dL (11.4-16.0); Lymphocytes # (A) 1.3 k/uL (1.0-4.8); Lymphocytes % (A) 18 %; MCH 32.8 pg (25.0-35.0); MCV 96.6 fL (80.0-100.0); Mean Platelet Volume 7.4; Monocytes # (A) 0.4 k/uL (0-1.0); Monocytes % (A) 6 %; Neutrophils # (A) 5.2 k/uL (1.3-7.7); Neutrophils % (A) 72 %; Non-African American GFR(CKD) 86 (>60 ml/min/1.73 sqM); Platelet Count 263 k/uL (150-450); RBC 4.14 m/uL (3.80-5.40); RDW 13.3 % (11.5-15.5); Sodium 136 mmol/L (137-145); Total Bilirubin 0.7 mg/dL (0.2-1.3); Total Protein 5.7 g/dL (6.3-8.2); WBC 7.1 k/uL (3.8-10.6)
[2023-02-28 22:17] LABS: AST 34 U/L (14-36); Alkaline Phosphatase 83 U/L (38-126); Magnesium 1.9 mg/dL (1.6-2.3); Partial Thromboplastin Time 23.5 sec (22.0-30.0); Phosphorus 3.6 mg/dL (2.5-4.5); Potassium 3.8 mmol/L (3.5-5.1); Prothrombin Time 10.1 sec (9.0-12.0)
[2023-02-28 22:19] LABS: NT-Pro-B-Type Natriuretic Pept 115 pg/mL
--- NOTE | 2023-02-28 22:37 | XR ---
EXAMINATION TYPE: XR chest 1V DATE OF EXAM: 02/28/2023 COMPARISON: 02/25/2023 and 05/26/2022 HISTORY: 87-year-old female with fall and left hip pain TECHNIQUE: Single frontal view of the chest is obtained. FINDINGS: Asymmetric volume loss right hemithorax. Hyperinflation with interstitial prominence redem onstrated. Atherosclerotic arch calcifications. There is underlying large hiatal hernia projecting b ehind the heart. Old left superior rib fracture deformity. IMPRESSION: COPD. Some asymmetric volume loss in the right hemithorax appears increased. Consider follow-up in 3- 4 weeks to reassess. If there is no improvement, CT may be indicated. There is a large hiatal hernia projecting behind the heart that may be related to some atelectasis.
--- NOTE | 2023-02-28 22:41 | XR ---
EXAMINATION TYPE: XR Hip 2 views LT and AP Pelvis, XR femur 2 views LT DATE OF EXAM: 02/28/2023 Comparison: 02/25/2023 Clinical History: 87-year-old female pain after fall Findings: Pelvis and left hip: There is an intertrochanteric fracture with wayne lateral apex angulation and resultant 2.7 cm of sup erior separation. Mild degenerative change of the left hip. Moderate axial joint space narrowing righ t hip. Prominent stool distending the rectum up to 8.2 cm wide. Femur: Previous 2 screw fixation across the patella. Osteopenia. Patient positioning limits evaluation. No a dditional fracture of the more mid to distal femur clearly identified. Impression: Severely angulated IT fracture proximal left femur. Mild left hip OA. Moderate right hip OA. Correlat e to exclude fecal impaction. Internal fixation for previous patellar fracture.
--- NOTE | 2023-02-28 23:06 | CT ---
EXAMINATION TYPE: CT brain renny baker DATE OF EXAM: 02/28/2023 COMPARISON: 02/25/2023 HISTORY: 87-year-old female with pain after fall CT DLP: 1238 mGycm Automated exposure control for dose reduction was used. Technique: Examination of the head was done in axial plane without intravenous contrast. Coronal and sagittal reconstructions performed. CT of the cervical spine was obtained in axial plane without intravenous injection of contrast mater ial. Coronal and sagittal reformatted images were obtained from the axial views for evaluation of f ractures, spinal alignment and canal. FINDINGS: Head: There is no evidence of acute intracranial hemorrhage, acute ischemic changes, mass, mass-effect, or extra-axial fluid collection. There is no effacement of cerebral sulci or basal subarachnoid cister ns. There is no hydrocephalus. There is no midline shift. Keys-white matter distinction is preserv ed. Mild to moderate generalized supratentorial volume loss. Mild patchy periventricular white matter hyp odensities. Mild mucosal thickening ethmoid air cells. Mastoid air cells well pneumatized. Orbits and globes are intact. Cervical spine: Osteopenia. No craniocervical junction abnormality, predental space widening, or prevertebral soft ti ssue swelling. Degenerative change C1 dens articulation. Moderate disc/endplate degenerative change C 5-C6 and mild elsewhere in the cervical spine. Degenerative grade 1 anterolisthesis C7-T1. Uncovertebral joint arthropathy mid to lower cervical spine. Mild spinal canal narrowing at C5-C6 from disc osteophyte complex. No acute fracture seen. The patient's head is turned towards the right accounting for asymmetry betwe en the right and left periventricular space. Moderate to advanced emphysematous change in the visuali zed upper lungs. Sagittal and coronal reformatted images confirm above findings. COMBINED IMPRESSION: 1. No acute intracranial abnormality seen. Mild burden of chronic small vessel ischemic disease with mild to moderate cerebral atrophy. 2. Moderate spondylotic change. Degenerative grade 1 anterolisthesis C7-T1. No acute fracture of the cervical spine.
[2023-03-01] MEDS ORDERED: NALOXONE 0.4 MG/ML 1 ML VIAL IV PRN ×2 (00:16→11:41)
[2023-03-01] MEDS ORDERED: ONDANSETRON 4 MG/2 ML VIAL IVP PRN (00:16)
[2023-03-01] MEDS: SODIUM CHLORIDE 0.9% 1,000 ML IV SCH ×3 (00:53→20:05)
[2023-03-01] MEDS: MORPHINE SULFATE 4 MG/ML SYRINGE IV PRN ×3 (02:04→17:03)
[2023-03-01] MEDS ORDERED: PANTOPRAZOLE 40 MG TABLET PO PRN (02:40)
[2023-03-01] MEDS ORDERED: TRANEXAMIC 1,000 MG/100ML-NACL 1,000 MG in SALINE 1 100ML.BAG IVPB PRN ×3 (05:00)
--- NOTE | 2023-03-01 06:05 | P.CONS ---
History of Present Illness - Reason for Consult Consult date: 03/01/23 Perioperative medical management - Chief Complaint Fall - History of Present Illness 87-year-old female with dementia currently lives at assisted living facility Patient has advanced dementia and unable to provide any meaningful history no family available at this time history obtained by reviewing medical records She comes in after being found by staff and family on the ground unable to get up. Upon evaluation in the ED she was found to have left intertrochanteric fracture. There is report of frequent falling at the assisted living facility No other information available at this time review of systems unable to obtain due to patient mental status and advanced dementia however she denies any symptoms or concerns when asked on exam Constitutional: No acute distress, conversant, she answers with no to everything denies any medical concerns Eyes: Anicteric sclerae, moist conjunctiva, Pupils equal round reactive to light ENMT: NC/AT Oropharynx clear, no erythema, or exudates Neck: Supple, no masses, or JVD No carotid bruits No thyromegaly Lungs: Clear to auscultation Clear to percussion Normal respiratory effort, no accessory muscle use Cardiovascular: Heart regular in rate and rhythm, No murmurs, gallops, or rubs No peripheral edema Abdominal: Soft Nontender, no guarding, rebound or rigidity Abdomen moving with respiration Normoactive bowel sounds No hepatomegaly, No splenomegaly No palpable mass No abdominal wall hernia noted Extremities: No digital cyanosis No clubbing Pedal pulses intact and symmetrical Radial pulses intact and symmetrical No calf tenderness Psychiatric: Alert and oriented to person, only Neuro unable to perform she refuses to follow my commands but she is moving bilateral upper extremities freely and purposefully Lymphatics: no palpable cervical or supraclavicular lymph nodes Past Medical History Past Medical History: Cancer, Dementia Additional Past Medical History / Comment(s): hx of colon cancer Past Surgical History: Joint Replacement Past Psychological History: Anxiety, Bipolar Smoking Status: Former smoker Past Alcohol Use History: None Reported Past Drug Use History: None Reported Medications and Allergies Home Medications Medication Instructions Recorded Confirmed Type Acetaminophen Tab [Tylenol Tab] 500 mg PO Q8H PRN 12/26/22 12/26/22 History Cholecalciferol [Vitamin D3 (25 50 mcg PO DAILY 12/26/22 12/26/22 History Mcg = 1000 Iu)] LORazepam [Ativan] 0.25 - 0.5 mg PO BID 12/26/22 12/26/22 History Multivit-Min/Iron/Folic/Lutein 1 tab PO DAILY 12/26/22 12/26/22 History [Centrum Silver Women Tablet] Omeprazole [PriLOSEC] 20 mg PO DAILY PRN 12/26/22 12/26/22 History Rivastigmine 9.5MG/24Hr Patch 1 patch TRANSDERM Q24HR 12/26/22 12/26/22 History [Exelon 9.5MG/24Hr Patch] amLODIPine [Norvasc] 7.5 mg PO DAILY 12/26/22 12/26/22 History lamoTRIgine [LaMICtal] 100 mg PO BID 12/26/22 12/26/22 History lisinopriL [Zestril] 20 mg PO DAILY 12/26/22 12/26/22 History traZODone HCL [Desyrel] 25 - 50 mg PO HS 12/26/22 12/26/22 History Allergies Allergy/AdvReac Type Severity Reaction Status Date / Time No Known Allergies Allergy Verified 02/28/23 21:30 Physical Exam Vitals: Vital Signs Temp Pulse Resp BP Pulse Ox 03/01/23 00:00 64 18 130/70 99 02/28/23 23:00 68 18 132/64 99 02/28/23 22:29 60 18 133/63 98 02/28/23 21:21 97.8 F 57 L 18 138/70 99 Intake and Output 02/28/23 02/28/23 03/01/23 14:59 22:59 06:59 Other: Weight 57.289 kg Results CBC & Chem 7: 02/28/23 21:43 02/28/23 21:43 Labs: Abnormal Lab Results - Last 24 Hours (Table) 02/28/23 Range/Units 21:43 Sodium 136 L (137-145) mmol/L BUN 23 H (7-17) mg/dL Glucose 117 H (74-99) mg/dL Calcium 8.0 L (8.4-10.2) mg/dL Total Protein 5.7 L (6.3-8.2) g/dL Albumin 3.1 L (3.5-5.0) g/dL Assessment and Plan Assessment: 87-year-old female with advanced dementia comes in after falling at assisted living facility found to have left intertrochanteric femoral fracture. Patient is unreliable historian however she denies any recent history or symptoms of congestive heart failure, mycardial infarction, syncope, arrhythmia, palpitation, or exertional dyspnea. Patient denies any past medical history of stroke, CAD, CHF, CKD, or DM. Unable to assess patient functional status at baseline there is a report of frequent falling at assisted living facility Patient labs reviewed, overall unremarkable hemoglobin 13.6 white count 7.1 lactic acid 0.9 BUN 23 creatinine 0.54 sodium 136 potassium 3.8. Magnesium 1.9 troponin is negative EKG reviewed showed sinus bradycardia no acute ST changes CT of the head no acute pathology however showing chronic small vessel ischemia Chest x-ray showed large hiatal hernia with volume loss of the right hemithorax Patient is scheduled for orthopedic surgery to fix left hip fracture. This is of moderate risk, however, patient has no medical risk factors from her past medical history except for her advanced age. Patient can proceed to surgery with moderate to high but acceptable perioperative cardiovascular risk factors with no modifiable risk factors at this time. Family is not available at this time to explain the above recommendations Left intertrochanteric femoral fracture secondary to accidental fall Management per orthopedic primary team Hypertension Continue with amlodipine Hold lisinopril and resume on March 02 Thank you for this consultation
[2023-03-01] MEDS: PANTOPRAZOLE 40 MG/10 ML VIAL IV SCH (08:55)
[2023-03-01] MEDS ORDERED: amLODIPine 2.5 MG TAB PO SCH (09:00)
--- NOTE | 2023-03-01 09:56 | P.HPOR ---
History of Present Illness H&P Date: 03/01/23 Chief Complaint: Left hip fracture 87 yo female presented from care facility by EMS after being found down in her room after an assumed, unwitnessed fall. Her family is at bedside. She states pain in her left hip. She has advanced dementia and was unable to provide history of the fall but stated she does want surgery as she wants to walk again. Family agrees. Her history was reviewed along with the surgery and risks with family. Medicine note was reviewed and I agree. Review of Systems 14 points review of systems completed and as stated in HPI, all other systems reviewed are negative. Past Medical History Past Medical History: Cancer, Dementia Additional Past Medical History / Comment(s): hx of colon cancer History of Any Multi-Drug Resistant Organisms: None Reported Past Surgical History: Joint Replacement Past Anesthesia/Blood Transfusion Reactions: No Reported Reaction Past Psychological History: Anxiety, Bipolar Smoking Status: Former smoker Past Alcohol Use History: None Reported Past Drug Use History: None Reported Medications and Allergies Home Medications Medication Instructions Recorded Confirmed Type Acetaminophen Tab [Tylenol Tab] 500 mg PO Q8H PRN 12/26/22 12/26/22 History Cholecalciferol [Vitamin D3 (25 50 mcg PO DAILY 12/26/22 12/26/22 History Mcg = 1000 Iu)] LORazepam [Ativan] 0.25 - 0.5 mg PO BID 12/26/22 12/26/22 History Multivit-Min/Iron/Folic/Lutein 1 tab PO DAILY 12/26/22 12/26/22 History [Centrum Silver Women Tablet] Omeprazole [PriLOSEC] 20 mg PO DAILY PRN 12/26/22 12/26/22 History Rivastigmine 9.5MG/24Hr Patch 1 patch TRANSDERM Q24HR 12/26/22 12/26/22 History [Exelon 9.5MG/24Hr Patch] amLODIPine [Norvasc] 7.5 mg PO DAILY 12/26/22 12/26/22 History lamoTRIgine [LaMICtal] 100 mg PO BID 12/26/22 12/26/22 History lisinopriL [Zestril] 20 mg PO DAILY 12/26/22 12/26/22 History traZODone HCL [Desyrel] 25 - 50 mg PO HS 12/26/22 12/26/22 History Allergies Allergy/AdvReac Type Severity Reaction Status Date / Time No Known Allergies Allergy Verified 02/28/23 21:30 Physical Examination Osteopathic Statement: *. No significant issues noted on an osteopathic st ructural exam other than those noted in the History and Physical/Consult. Physical Exam: -Patient is alert and oriented 3 appears well-nourished well-hydrated is in no acute distress. They do not appear septic. -There is TTP left hip -Upper extremities show 4+ out of 5 strength in all major muscle groups. -Lower extremities with 4out of 5 strength in all major muscle groups left lower extremity -There is [FROM] that is [painless] of the b/l UE and LE in all major joints. left lower shoulder pain with logroll -They are intact to light touch sensation in C5 to T1 and L2 to S1 nerve distribution. -DTR [2]/4 all upper and lower extremities -Patient has palpable distal pulses all 4 ext -Compartments are soft and compressible. -Patient shows a negative Cristina's Cranial nerves II through XII are grossly intact. Results x-rays of the left hip demonstrate a left hip intertrochanteric fracture which is displaced shortened external rotated and in 3-4 parts. Lesser is off. No other fractures or dislocations noted the pelvis or any other extremities at this time. Previous history of surgery of the knee. - Labs Labs: Abnormal Lab Results - Last 24 Hours (Table) 02/28/23 Range/Units 21:43 Sodium 136 L (137-145) mmol/L BUN 23 H (7-17) mg/dL Glucose 117 H (74-99) mg/dL Calcium 8.0 L (8.4-10.2) mg/dL Total Protein 5.7 L (6.3-8.2) g/dL Albumin 3.1 L (3.5-5.0) g/dL H & H 02/28/23 Range/Units 21:43 Hgb 13.6 (11.4-16.0) gm/dL Hct 40.0 (34.0-46.0) % Coagulation 02/28/23 Range/Units 21:43 INR 1.0 (<1.2) Result Diagrams: 02/28/23 21:43 02/28/23 21:43 Assessment and Plan Assessment: 87-year-old female status post fall from standing - left hip intertrochanteric fracture four-part displaced - complex medical patient - dementia Plan: Orthopedic Surgery Risk Review Leela Whalen is a 87-year-old female presenting for evaluation of sudden onset left hip pain, inability to ambulate after fall from standing. It was my pleasure to have seen and examined Leela Whalen. In our visit today we have had a chance to go over subjective complaints, physical examination findings and treatments including the natural course history without intervention and various interventional options. her imaging demonstrates left intertrochanteric fracture four-part displaced. On physical exam, Leela Macarioandemonstrates pain with motion of left lower extremity, which is NV intact at this time. I have explained to the patient that this fracture needs stabilization. Based on the patients imaging, physical exam, and the rapid progression and disabling nature of her symptoms, at this time I recommend surgery in the form or a: intramedullary nail fixation left hip I discussed the risk and benefits of this procedure at length with Leela Whalen and her family at bedside. Questions were invited and answered, and the patient wishes to proceed as outlined below. Currently, I am recommendin. intramedullary nail fixation left hip 2. Review of surgical risks and benefits as well as an educational packet on the proposed surgical procedure. Risks: All surgical procedures come with inherent risks, including those related to positioning, anesthesia, intraoperative findings, and postoperative complications. It is important to understand that surgery does not come with any guarantee of a successful outcome as complications and adverse events are always possible. The patient was given a handout discussing the surgical procedure and risks associated with the intervention, both of which were discussed with the patient. These risks include but are not limited to the following: - Experiencing same, different or even worse symptoms compared to before surgery. - Requiring further surgery or other forms of treatment presently or at some time in the future . - On an extreme but fortunately relatively rare basis severe complication such as blindness, stroke, heart attack, temporary and/or permanent nerve injury, paralysis, coma, or may occur, sometimes without known explanation. - Surgical complications may include but are not limited to risk of infection, fluid accumulation in the surgical dissection site, including a seroma or hematoma, that requires additional surgery, wound drainage, bleeding, new numbness or weakness, vision changes/loss, spinal fluid leakage, non-healing and/or infected incision, headaches, difficulty or inability to swallow, hoarseness, hemopneumothorax, pneumothorax, injury to nerves, spinal cord, blood vessels, lymphatics or other vital organs (i.e., bowel injury, injury to the great vessels); heterotopic bone formation; complications related to the cardona rdware such as screws, rods, including misplaced hardware, device failure, hardware fracture/breakage, or hardware loosening; retained surgical instrumentations or devices and the need for further surgery. - Medical risks of the planned surgery include but are not limited to generalized Infections to the whole body or local areas outside of the surgical site (sepsis), heart attack, bleeding, anaphylaxis, meningitis, seizure, epilepsy, hearing loss, burn oneal, laceration of the head or other areas of the body, bruising, hypersensitivity of the skin, bladder over distension; allergic reaction; shoulder injury related to positioning; fat, blood and air clots to other areas of the body like heart, lungs, brain; failure of internal organs such as lungs, kidneys, liver and excessive bleeding. If blood transfusions are necessary, note that transfusions may cause intolerance reactions such as anaphylaxis or other complex reactions. Despite best efforts, the results of surgery might not heal in terms of bone, soft tissues such as skin, fascia, ligaments, and joints. [facility] with single and overlapping rooms running daily. They currently function under the required guidelines as produced by the Senate Finance Committee with regards to the overlapping rooms and will continue to comply with changes to this policy as they occur. The requirements include and are complied with as follows: (1) the critical portions of the overlapping rooms will not occur at the same time, (2) the attending physician will be physically present during the critical portions of the procedure and immediately available during the entire case, and (3) a back-up attending is designated should the primary attending not be immediately available. The patient has had a chance to review all the listed information, has been given print outs detailing this information, and has had all his/her questions answered to their satisfaction. It was my pleasure to have seen and examined Leela Whalen. In our visit today we have had a chance to go over my understanding of our patient's current condition, the natural course history without intervention and various interventional options. Questions were invited and answered, and the patient wishes to proceed as outlined above. I have seen and examined the patient for 25 minutes and we have spent more than 50% of the time in repeat and detailed counseling about the patient's condition, its natural course history with out and as much as can be predicted with surgery and re-review of various surgical treatment options. In conclusion, Leela Whalen and family at bedside requested we proceed with the above suggested surgery and are willing to accept risks and limitations of the suggested surgery as nature of the disease process and our best attempts at treatment for the condition. Thank you again for allowing us to be part of your patient's care. Please don't hesitate to contact me if you have any further questions. Signed and authenticated by: Darryl Montoya [facility] [address], [address] [address] Time with Patient: Greater than 30
[2023-03-01] MEDS ORDERED: TRANEXAMIC 1,000 MG/100ML-NACL 1,000 MG in SALINE 1 100ML.BAG IVPB ONE ×2 (10:12→10:13)
[2023-03-01] MEDS ORDERED: PROPOFOL 10 MG/ML 20 ML VIAL IV ONE (10:27)
[2023-03-01] MEDS ORDERED: SUCCINYLCHOLINE CHLORIDE 200 MG/10 ML VIAL IV ONE (10:27)
[2023-03-01] MEDS ORDERED: NEOSTIGMINE 1 MG/ML 10 ML VIAL ONE (10:27)
[2023-03-01] MEDS ORDERED: TRANEXAMIC 1,000 MG/100ML-NACL PREMIX BAG ONE (10:27)
[2023-03-01] MEDS ORDERED: LIDOCAINE 2% INJ 20 MG/ML (2 ML VIAL) ONE (10:27)
[2023-03-01] MEDS ORDERED: ROCURONIUM 10 MG/ML (5 ML VIAL) IV ONE (10:27)
[2023-03-01] MEDS ORDERED: GLYCOPYRROLATE 0.2 MG/ML 2 ML VIAL ONE (10:27)
[2023-03-01] MEDS ORDERED: fentaNYL (PF) 50 MCG/ML 2 ML AMP ONE (10:27)
[2023-03-01] MEDS ORDERED: ONDANSETRON 4 MG/2 ML VIAL ONE (10:27)
[2023-03-01] MEDS ORDERED: SODIUM CHLORIDE 0.9% 50 ML with ceFAZolin 1,000 MG IV ONE ×2 (10:40)
[2023-03-01] MEDS ORDERED: LACTATED RINGERS 1,000 ML IV ONE (10:40)
[2023-03-01] MEDS ORDERED: ceFAZolin 1,000 MG in SODIUM CHLORIDE 0.9% 1,000 ML IRRIGATION ONE (10:55)
[2023-03-01] MEDS ORDERED: LIDOCAINE 2%-EPI 1:100,000 20 ML VIAL SQ ONE (11:20)
[2023-03-01] MEDS ORDERED: BUPIVACAINE (PF) 0.5% 30 ML VIAL SQ ONE (11:20)
[2023-03-01] MEDS ORDERED: HYDROmorphone 1 MG/ML 1 ML SYRINGE IVP PRN (11:41)
[2023-03-01] MEDS ORDERED: HYDROmorphone 0.5 MG/0.5 ML SYRINGE IVP PRN (11:41)
--- NOTE | 2023-03-01 11:41 | XR ---
Fluoroscopy History: HARDWARE PLACEMENT 1:13 fluoro, [id number] DAP
--- NOTE | 2023-03-01 12:26 | XR ---
EXAMINATION TYPE: XR Hip Limited LT DATE OF EXAM: 03/01/2023 CLINICAL HISTORY: Postoperative evaluation TECHNIQUE: Single portable view of the left hip was submitted. FINDINGS: Noted are changes of intramedullary pedro and dynamic compression screw placement. Alignment is anatomic. Postsurgical soft tissue changes are evident. IMPRESSION: Satisfactory postoperative alignment
[2023-03-01] MEDS: SENNOSIDES-DOCUSATE SODIUM 1 EACH TAB PO SCH (20:04)
[2023-03-01] MEDS: HYDROcodone/APAP 5-325MG 1 EACH TAB PO PRN (20:05)
[2023-03-02] MEDS: MORPHINE SULFATE 4 MG/ML SYRINGE IV PRN (01:54)
[2023-03-02] MEDS: HYDROcodone/APAP 5-325MG 1 EACH TAB PO PRN ×2 (06:28→16:10)
--- NOTE | 2023-03-02 06:48 | P.PN ---
Subjective Progress Note Date: 03/02/23 Principal diagnosis: Left hip fracture Patient seen and examined this morning. Patient is pleasantly confused at this time, alert to self and states she is in a hospital. Patient does not remember at this time that she had surgery yesterday on her hip. Sitter is at that bedsi de to maintain safety. Surgical dressings to the left hip are clean dry and intact, no shadowing noted. Patient is able to wiggle her toes of left lower extremity, she is unable to lift her leg at this time. Oriented patient to situation and place, informed her that physical therapy will be working with her today. Continue to utilize ice on the left hip for pain management. No acute events overnight. Objective - Vital Signs Vital signs: Vital Signs Temp 98.4 F 03/02/23 01:29 Pulse 88 03/02/23 01:29 Resp 18 03/02/23 01:29 BP 161/82 03/02/23 01:29 Pulse Ox 94 L 03/02/23 01:29 FiO2 21 03/01/23 09:16 Intake & Output 03/01/23 03/01/23 03/02/23 06:59 18:59 06:59 Intake Total 401 1240 Output Total 300 700 Balance 101 540 Weight 57.289 kg 57.289 kg Intake: IV 251 Intake, IV Titration 150 1000 Amount Sodium Chloride 0.9% 1, 900 000 ml @ 75 mls/hr IV . [id number] [facility] Rx#:[id number] Tranexamic 1,000 mg/100Ml 100 -NaCl 1,000 mg In Saline 1 100ml.bag @ 200 mls/hr IVPB ONCE PRN Rx#: [id number] ceFAZolin 2 gm In Sodium 50 100 Chloride 0.9% 50 ml @ 100 mls/hr IVPB Q8HR [facility] Rx# :[id number] Oral 240 Output: Urine 100 700 Estimated Blood Loss 200 Other: Voiding Method Indwelling Catheter Indwelling Catheter Indwelling Catheter # Bowel Movements 0 0 - Exam Inspection: Negative for any open fractures. Decubitus ulcer present on buttock. Surgical incisions of the left hip are clean dry and intact. Skin tear present to the left calf, dressing is clean dry and intact. Sensation: Sensation is equal, symmetric, bilaterally intact throughout the upper and lower extremities. Palpation: Nontender to palpation throughout bilateral upper and lower extremities and throughout spine exam Range of motion: Patient does have full range of motion bilateral upper and right lower extremities on exam. Limited range of motion of the left lower extremity due to pain and surgical procedure. Motor: 5/5 in all major motor groups in the bilateral upper and right lower extremities, 3+/5 left lower extremity Special tests: Negative Homans bilaterally. Negative Mirna bilaterally. Negative clonus bilaterally. Neurovascular: Radial pulse intact, 2+ bilaterally. Cap refill under 3 seconds in digits upper extremities. - Labs CBC & Chem 7: 02/28/23 21:43 02/28/23 21:43 Assessment and Plan Assessment: Postop day 1: Left hip IM nail fixation - left hip intertrochanteric fracture four-part displaced - complex medical patient - dementia Plan: -Appreciate databases computer consultant and team management. -Activity: Ambulate QID, OOB all meals, up and about, limit lifting bending twisting to less than 5 lbs. Use walker or cane if needed for stability. -Daily PT/OT, increase ambulation strength and balance. -Pain control: Adequate at this time -Meds: reviewed -GI ppx: senna, Miralax -DC ellsworth when up and about, bedside commode if needed -DVT PPX: Heparin -Hygiene: Shower today. Maintain dressing clean and dry. Left calf dressing: Adaptic with ABD and kerlix wrap. -Encourage IS 10x/hr -Dispo: Anticipate discharge to [facility] when medically stable. *I reviewed and discussed this case with my attending Dr. Long, whom has reviewed this chart and films and is in agreement with assessment and plan of care as outlined above. I have personally seen and examined the patient, performed the documentation and the assessment and plan as written. Number of minutes spent on the visit: 20m.
[2023-03-02] MEDS: ENOXAPARIN 40 MG/0.4 ML SYRINGE SQ SCH (08:37)
[2023-03-02] MEDS: amLODIPine 5 MG TAB PO SCH (08:38)
[2023-03-02] MEDS: PANTOPRAZOLE 40 MG/10 ML VIAL IV SCH (08:39)
[2023-03-02] MEDS: SODIUM CHLORIDE 0.9% 1,000 ML IV SCH (09:23)
[2023-03-02] MEDS ORDERED: ACETAMINOPHEN TAB 325 MG TAB PO PRN (10:04)
[2023-03-02 11:03] LABS: Basophils # (A) 0.08 X 10*3/uL (0.00-0.10); Basophils % (A) 0.8 %; Eosinophils # (A) 0.01 X 10*3/uL (0.04-0.35); Eosinophils % (A) 0.1 %; HCT 36.4 % (37.2-46.3); HGB 11.5 d/dL (12.0-15.0); Lymphocytes # (A) 0.73 X 10*3/uL (0.90-5.00); Lymphocytes % (A) 7.5 %; MCH 31.9 pg (27.0-32.0); MCHC 31.6 d/dL (32.0-37.0); MCV 100.8 FL (80.0-97.0); Mean Platelet Volume 9.6 FL (9.5-12.2); Monocytes # (A) 0.99 X 10*3/uL (0.20-1.00); Monocytes % (A) 10.1 %; NRBC Per 100 WBC 0 X 10*3/uL (0.00-0.01); Neutrophils # (A) 7.92 X 10*3/uL (1.80-7.70); Neutrophils % (A) 81.2 %; Platelet Count 262 X 10*3/uL (140-440); RBC 3.61 X 10*6/uL (4.10-5.20); RDW 13.8 % (11.5-14.5); WBC 9.76 X 10*3/uL (4.50-10.00)
[2023-03-02 11:10] LABS: ALT 18 U/L (8-44); AST 24 U/L (13-35); Albumin 3.4 d/dL (3.8-4.9); Albumin/Globulin Ratio 1.89 Ratio (1.60-3.17); Alkaline Phosphatase 85 U/L (41-126); Blood Urea Nitrogen 17.1 mg/dL (9.0-27.0); Calcium 8.5 mg/dL (8.7-10.3); Carbon Dioxide 26.8 mmol/L (21.6-31.8); Chloride 105 mmol/L (96-109); Globulin 1.8 d/dL (1.6-3.3); Glucose 105 mg/dL (70-110); Potassium 3.5 mmol/L (3.5-5.5); Sodium 142 mmol/L (135-145); Total Bilirubin 0.6 mg/dL (0.3-1.2); Total Protein 5.2 d/dL (6.2-8.2)
[2023-03-02] MEDS: DIVALPROEX 250 MG TABLET.DR PO SCH ×2 (11:18→19:55)
[2023-03-02] MEDS: lamoTRIgine 100 MG TAB PO SCH ×2 (11:18→19:55)
[2023-03-02] MEDS: lisinopriL 20 MG TAB PO SCH (11:18)
--- NOTE | 2023-03-02 16:07 | P.PN ---
Subjective Progress Note Date: 03/02/23 (delayed charting seen at 0930) Patient is a an 87-year-old female with history of dementia, hypertension, and dyslipidemia who presented to the ER after a fall. She was subsequently found to have a left hip fracture was admitted to orthopedic surgery with our group to consult. Patient seen and examined at bedside. Denies any chest pain or shortness of breath. She is having significant left leg pain and she feels that she will never be able to move her left leg again. Vital signs reviewed General: nontoxic, no distress, appears at stated age Cardiovascular: S1S2 reg, no murmur, positive posterior tibial pulse bilateral, Lungs: CTA bilateral, no rhonchi, no rales , no accessory muscle use Abdominal: soft, nontender to palpation, no guarding, no appreciable organomegaly Ext: no gross muscle atrophy, no edema b/l lower extremities, no contractures Neuro: CN II-XI grossly intact, no focal neuro deficits Psych: Alert, oriented to selfa, appropriate affect Assessment/Plan: Left hip fracture status post left hip IM nailing -Management per orthopedic services Hypertension, controlled -Resume Norvasc 5 mg daily and lisinopril 20 mg daily -Follow blood pressures Dementia with behavioral disturbances -Family has spoke with nursing and believes that Seroquel and benzodiazepines were stopped recently due to falls -Resume Lamictal 100 mg twice daily and Depakote 250 mg twice daily -Continue to hold doesn't roll and Seroquel -PT/OT -Fall precautions Acute blood loss anemia -Anticipated outcome of surgery -No indication for transfusion -Follow CBC inb 48 hours Scalp dario from prior fall -Removed on 03/04 Imaging: None new Data Review: Afebrile for the last 24 hours AM vitals with HR 86, RR 17, BP 118/72 and O2 94% on 2L Labs reviewed and hemoglobin 11.5 Thank you for allowing us to participate in the care of this pleasant patient. Do not hesitate to contact us with questions. Someone can be reached from the [facility] hospitalist group all hours of the day at [phone] or via perfect serve. This dictation was prepared using [employer] voice recognition software. Though every attempt is made to correct errors during dictation some may still exist. Objective - Vital Signs Vital signs: Vital Signs Temp 98.9 F 03/02/23 12:42 Pulse 78 03/02/23 12:42 Resp 20 03/02/23 12:42 BP 127/69 03/02/23 12:42 Pulse Ox 93 L 03/02/23 12:42 FiO2 21 03/02/23 08:25 Intake & Output 03/01/23 03/02/23 03/02/23 18:59 06:59 18:59 Intake Total 401 1240 Output Total 300 700 Balance 101 540 Weight 57.289 kg Intake: IV 251 Intake, IV Titration 150 1000 Amount Sodium Chloride 0.9% 1, 900 000 ml @ 75 mls/hr IV . [id number] [facility] Rx#:[id number] Tranexamic 1,000 mg/100Ml 100 -NaCl 1,000 mg In Saline 1 100ml.bag @ 200 mls/hr IVPB ONCE PRN Rx#: [id number] ceFAZolin 2 gm In Sodium 50 100 Chloride 0.9% 50 ml @ 100 mls/hr IVPB Q8HR [facility] Rx# :[id number] Oral 240 Output: Urine 100 700 Estimated Blood Loss 200 Other: Voiding Method Indwelling Catheter Indwelling Catheter Indwelling Catheter # Bowel Movements 0 0 - Labs CBC & Chem 7: 03/02/23 06:33 03/02/23 06:33 Labs: Abnormal Lab Results - Last 24 Hours (Table) 03/02/23 03/02/23 Range/Units 06:33 06:33 RBC 3.61 L (4.10-5.20) X 10*6/uL Hgb 11.5 L (12.0-15.0) d/dL Hct 36.4 L (37.2-46.3) % MCV 100.8 H (80.0-97.0) FL MCHC 31.6 L (32.0-37.0) d/dL Neutrophils # 7.92 H (1.80-7.70) X 10*3/uL Lymphocytes # 0.73 L (0.90-5.00) X 10*3/uL Eosinophils # 0.01 L (0.04-0.35) X 10*3/uL BUN/Creatinine Ratio 28.50 H (12.00-20.00) Ratio Calcium 8.5 L (8.7-10.3) mg/dL Total Protein 5.2 L (6.2-8.2) d/dL Albumin 3.4 L (3.8-4.9) d/dL
[2023-03-02] MEDS: ATORVASTATIN 10 MG TAB PO SCH (19:55)
[2023-03-02] MEDS: traMADol 50 MG TAB PO PRN (19:55)
[2023-03-02] MEDS: SENNOSIDES-DOCUSATE SODIUM 1 EACH TAB PO SCH (19:55)
[2023-03-02] MEDS ORDERED: traZODone HCL 50 MG TAB PO SCH (21:00)
[2023-03-02] MEDS ORDERED: QUEtiapine 50 MG TAB PO SCH (21:00)
[2023-03-03] MEDS: HYDROcodone/APAP 5-325MG 1 EACH TAB PO PRN ×2 (02:01→18:01)
[2023-03-03] MEDS: SODIUM CHLORIDE 0.9% 1,000 ML IV SCH ×2 (06:54→21:15)
[2023-03-03] MEDS: amLODIPine 5 MG TAB PO SCH (08:26)
[2023-03-03] MEDS: PANTOPRAZOLE 40 MG/10 ML VIAL IV SCH (08:26)
[2023-03-03] MEDS: traMADol 50 MG TAB PO PRN (08:27)
[2023-03-03] MEDS: lisinopriL 20 MG TAB PO SCH (08:27)
[2023-03-03] MEDS: ENOXAPARIN 40 MG/0.4 ML SYRINGE SQ SCH (08:27)
[2023-03-03] MEDS: lamoTRIgine 100 MG TAB PO SCH ×2 (08:27→21:11)
[2023-03-03] MEDS: DIVALPROEX 250 MG TABLET.DR PO SCH ×2 (08:28→21:11)
[2023-03-03] MEDS: RIVASTIGMINE 9.5MG/24HR PATCH TRANSDERM SCH (08:28)
--- NOTE | 2023-03-03 11:06 | P.PN ---
Subjective Progress Note Date: 03/03/23 Principal diagnosis: Left hip fracture Patient seen and examined this morning. Patient is pleasantly confused at this time. Sitter is at that bedside to maintain safety. Surgical dressings to the left hip are clean dry and intact, no shadowing noted. Patient is able to wiggl e her toes of left lower extremity, she continues to be unable to lift her leg at this time. Continue to utilize ice on the left hip for pain management. No acute events overnight. Objective - Vital Signs Vital signs: Vital Signs Temp 97.7 F 03/03/23 07:35 Pulse 68 03/03/23 07:35 Resp 20 03/03/23 07:35 BP 135/68 03/03/23 07:35 Pulse Ox 90 L 03/03/23 07:35 FiO2 21 03/02/23 08:25 Intake & Output 03/02/23 03/03/23 03/03/23 18:59 06:59 18:59 Intake Total 440 Output Total 300 420 Balance -300 20 Intake: Intake, IV Titration 200 Amount Sodium Chloride 0.9% 1, 200 000 ml @ 75 mls/hr IV . [id number] [facility] Rx#:[id number] Oral 240 Output: Urine 300 420 Other: Voiding Method Indwelling Catheter Indwelling Catheter # Bowel Movements 0 - Exam Inspection: Negative for any open fractures. Surgical incisions of the left hip are clean dry and intact. Sensation: Sensation is equal, symmetric, bilaterally intact throughout the upper and lower extremities. Palpation: Nontender to palpation throughout bilateral upper and lower extremities and throughout spine exam Range of motion: Patient does have full range of motion bilateral upper and right lower extremities on exam. Limited range of motion of the left lower extremity due to pain and surgical procedure. Motor: 5/5 in all major motor groups in the bilateral upper and right lower extremities, 3+/5 left lower extremity Special tests: Negative Homans bilaterally. Negative Mirna bilaterally. Negative clonus bilaterally. Neurovascular: Radial pulse intact, 2+ bilaterally. Cap refill under 3 seconds in digits upper extremities. - Labs CBC & Chem 7: 03/02/23 06:33 03/02/23 06:33 Labs: Abnormal Lab Results - Last 24 Hours (Table) 03/02/23 03/02/23 Range/Units 06:33 06:33 RBC 3.61 L (4.10-5.20) X 10*6/uL Hgb 11.5 L (12.0-15.0) d/dL Hct 36.4 L (37.2-46.3) % MCV 100.8 H (80.0-97.0) FL MCHC 31.6 L (32.0-37.0) d/dL Neutrophils # 7.92 H (1.80-7.70) X 10*3/uL Lymphocytes # 0.73 L (0.90-5.00) X 10*3/uL Eosinophils # 0.01 L (0.04-0.35) X 10*3/uL BUN/Creatinine Ratio 28.50 H (12.00-20.00) Ratio Calcium 8.5 L (8.7-10.3) mg/dL Total Protein 5.2 L (6.2-8.2) d/dL Albumin 3.4 L (3.8-4.9) d/dL Assessment and Plan Assessment: Postop day 2: Left hip IM nail fixation - left hip intertrochanteric fracture four-part displaced - complex medical patient - dementia Plan: -Appreciate building consultant and team management. -Activity: Ambulate QID, OOB all meals, up and about, limit lifting bending twisting to less than 5 lbs. Use walker or cane if needed for stability. -Daily PT/OT, increase ambulation strength and balance. -Pain control: Adequate at this time -Meds: reviewed -GI ppx: senna, Miralax -DC ellsworth when up and about, bedside commode if needed -DVT PPX: Heparin -Hygiene: Shower today. Maintain dressing clean and dry. -Encourage IS 10x/hr -Dispo: Anticipate discharge to [facility] when medically stable. *I reviewed and discussed this case with my attending Dr. Long, whom has reviewed this chart and films and is in agreement with assessment and plan of care as outlined above. I have personally seen and examined the patient, performed the documentation and the assessment and plan as written. Number of minutes spent on the visit: 20m.
--- NOTE | 2023-03-03 15:04 | P.PN ---
Subjective Progress Note Date: 03/03/23 (delayed charting seen at approx 0900) Patient is a an 87-year-old female with history of dementia, hypertension, and dyslipidemia who presented to the ER after a fall. She was subsequently found to have a left hip fracture was admitted to orthopedic surgery with our group to consult. Patient seen and examined at bedside. She continues to have left hip pain. She denies any chest pain or shortness of breath. Vital signs reviewed General: nontoxic, no distress, appears at stated age Cardiovascular: S1S2 reg, no murmur, positive posterior tibial pulse bilateral, Head: Scalp laceration shows variable healing but does show a hair trapped within dario. Lungs: CTA bilateral, no rhonchi, no rales , no accessory muscle use Abdominal: soft, nontender to palpation, no guarding, no appreciable organomegaly Ext: no gross muscle atrophy, no edema b/l lower extremities, no contractures Neuro: CN II-XI grossly intact, no focal neuro deficits Psych: Alert, oriented to selfa, appropriate affect Assessment/Plan: Left hip fracture status post left hip IM nailing -Management per orthopedic services Hypertension, controlled -Norvasc 5 mg daily and lisinopril 20 mg daily -Follow blood pressures Dementia with behavioral disturbances Lamictal 100 mg twice daily and Depakote 250 mg twice daily -Continue to hold deseryl and Seroquel -PT/OT -Fall precautions Acute blood loss anemia -Anticipated outcome of surgery -No indication for transfusion -Follow CBC in AM Scalp dario from prior fall -Removed 4 staple on 03/03, suggest monitoring and considering removal of other 4 on 03/07 Imaging: None new Data Review: Vitals reviewed temperature 97.7, pulse 68, respirations 20, blood pressure 135/68, O2 sat 90% on room air Labs were ordered for today Thank you for allowing us to participate in the care of this pleasant patient. Do not hesitate to contact us with questions. Someone can be reached from the [facility] hospitalist group all hours of the day at [phone] or via perfect serve. This dictation was prepared using [employer] voice recognition software. Though every attempt is made to correct errors during dictation some may still exist. Objective - Vital Signs Vital signs: Vital Signs Temp 97.4 F L 03/03/23 12:47 Pulse 65 03/03/23 12:47 Resp 20 03/03/23 12:47 BP 136/70 03/03/23 12:47 Pulse Ox 90 L 03/03/23 12:47 FiO2 21 03/02/23 08:25 Intake & Output 03/02/23 03/03/23 03/03/23 18:59 06:59 18:59 Intake Total 440 Output Total 300 420 Balance -300 20 Intake: Intake, IV Titration 200 Amount Sodium Chloride 0.9% 1, 200 000 ml @ 75 mls/hr IV . [id number] [facility] Rx#:[id number] Oral 240 Output: Urine 300 420 Other: Voiding Method Indwelling Catheter Indwelling Catheter Indwelling Catheter # Bowel Movements 0 - Labs CBC & Chem 7: 03/02/23 06:33 03/02/23 06:33
[2023-03-03] MEDS: SENNOSIDES-DOCUSATE SODIUM 1 EACH TAB PO SCH (21:11)
[2023-03-03] MEDS: ATORVASTATIN 10 MG TAB PO SCH (21:11)
[2023-03-04] MEDS: traMADol 50 MG TAB PO PRN (06:06)
[2023-03-04 07:35] VITALS: BP 124/67; PULSE 65; RESP 18; TEMP 98.7
[2023-03-04] MEDS: HYDROcodone/APAP 5-325MG 1 EACH TAB PO PRN (07:53)
[2023-03-04] MEDS: DIVALPROEX 250 MG TABLET.DR PO SCH (07:53)
[2023-03-04] MEDS: RIVASTIGMINE 9.5MG/24HR PATCH TRANSDERM SCH (07:53)
[2023-03-04] MEDS: lamoTRIgine 100 MG TAB PO SCH (07:55)
[2023-03-04] MEDS: lisinopriL 20 MG TAB PO SCH (07:55)
[2023-03-04] MEDS: ENOXAPARIN 40 MG/0.4 ML SYRINGE SQ SCH (07:55)
[2023-03-04] MEDS: PANTOPRAZOLE 40 MG/10 ML VIAL IV SCH (07:55)
[2023-03-04] MEDS: amLODIPine 5 MG TAB PO SCH (07:55)
[2023-03-04] MEDS: SODIUM CHLORIDE 0.9% 1,000 ML IV SCH (09:52)
--- NOTE | 2023-03-04 10:48 | P.DS ---
Providers Date of admission: 03/01/23 00:16 Expected date of discharge: 03/04/23 Attending physician: Darryl Long DO Consults: 03/01/23 00:16 Consult Physician Routine Consulting Provider: Mary Ellen Castro Consult Reason/Comments: [employer]Man[employer] Do you want consulting provider notified?: Yes Primary care physician: Alhaji Boggs MD Hospital Course: Date of admission: 02/28/2023 Date of discharge: 03/04/2023 Admission diagnosis: Left hip IT fracture Discharge diagnosis: Same Attending physician: Dr. Long Surgical procedures: Left hip IM nail Brief history: Patient is a 87 y/o female with a history of left hip IT fx s/p fall. At this point patient has failed conservative treatment measures and has opted to proceed with a elective left hip IM nail. Hospital course: Details of patient's surgery can be found in operative report. Patient tolerated the procedure well and was subsequently transported to orthopedic floor. Patient's orthopeidc and medical care was provided daily. Patient had daily laboratory tests performed for evaluation of overall blood counts. Patient had daily physical therapy to include strengthening range of motion as well as education with walker ambulation. Patient was treated with Lovenox for their postoperative DVT prophylaxis during their inpatient stay. Patient was noted to have a relatively uneventful postoperative course. Patient reported satisfactory pain control with oral pain medications by postoperative day 3. Patient showed satisfactory progress with physical therapy. Patient moved steadily through the program and had no difficulty meeting the goals by postoperative day 3. Given patient's otherwise satisfactory course and having met physical therapy goals, plan is to discharge patient to rehab on postoperative day 3. Discharge condition/disposition: Patient will be discharged to rehab in stable condition. Discharge medications: Instructions are given on resumption of patient's normal daily medications per primary care recommendation, in addition patient will be prescribed [place]; lovenox; senna. Discharge instructions: 1. Wound care and infection precautions, keep incision dry and covered while showering, no lotions, creams, moisturizers. No soaking, tubs, pools, hottubs. Do not scrub over the incision. 2. Weight-bear as tolerated with walker / cane until follow-up. 3. Ice and elevate when necessary. Do not exceed 20 minutes per hour with ice pack. 4. Utilize compression sleeve until seen at first follow up appointment. 5. Visiting nursing care. 6. physical therapy 7. Pain meds and anticoagulants per prescription. 8. Pain medication has potential to cause constipation. Increase oral fluid and fiber intake. Contact primary care provider if you have not had a bowel movement within 48 hours after discharge 9. No anti-inflammatory medication until discussed at first post operative visit, this including Motrin, Aleve, Mobic, Diclofenac. 10. Follow up in office at [address] Long 11. Follow up with your primary care doctor 7-10 days after discharge. 12. Contact [facility] with any questions, . Assessment: Left hip IT fracture Procedures: Left hip IM nail Patient Condition at Discharge: Fair Plan - Discharge Summary New Discharge Prescriptions: New HYDROcodone/APAP 5-325MG [[place] 5-325] 1 tab PO Q6HR PRN #21 tab PRN Reason: Pain Enoxaparin [Lovenox] 40 mg SQ DAILY #28 each Sennosides/Docusate Sodium [Senna Plus 8.6-50 mg Softgel] 1 each PO DAILY #20 cap Continue Cholecalciferol [Vitamin D3 (25 Mcg = 1000 Iu)] 50 mcg PO DAILY Omeprazole [PriLOSEC] 20 mg PO DAILY PRN PRN Reason: Heartburn lamoTRIgine [LaMICtal] 100 mg PO BID amLODIPine [Norvasc] 5 mg PO DAILY Multivit-Min/Iron/Folic/Lutein [Centrum Silver Women Tablet] 1 tab PO DAILY Divalproex [Depakote] 250 mg PO BID Rivastigmine 9.5MG/24Hr Patch [Exelon 9.5MG/24Hr Patch] 1 patch TRANSDERM Q24HR lisinopriL [Zestril] 20 mg PO DAILY Atorvastatin [Lipitor] 10 mg PO HS Discontinued Acetaminophen Tab [Tylenol Tab] 500 mg PO Q8H PRN PRN Reason: Pain QUEtiapine [SEROquel] 50 mg PO HS traZODone HCL [Desyrel] 50 mg PO HS LORazepam [Ativan] 0.25 - 0.5 mg PO BID No Action Ensure 1 can PO BID Discharge Medication List Cholecalciferol [Vitamin D3 (25 Mcg = 1000 Iu)] 50 mcg PO DAILY 12/26/22 [History] Multivit-Min/Iron/Folic/Lutein [Centrum Silver Women Tablet] 1 tab PO DAILY 12/26/22 [History] Omeprazole [PriLOSEC] 20 mg PO DAILY PRN 12/26/22 [History] Rivastigmine 9.5MG/24Hr Patch [Exelon 9.5MG/24Hr Patch] 1 patch TRANSDERM Q24HR 12/26/22 [History] amLODIPine [Norvasc] 5 mg PO DAILY 12/26/22 [History] lamoTRIgine [LaMICtal] 100 mg PO BID 12/26/22 [History] lisinopriL [Zestril] 20 mg PO DAILY 12/26/22 [History] Atorvastatin [Lipitor] 10 mg PO HS 03/01/23 [History] Divalproex [Depakote] 250 mg PO BID 03/01/23 [History] Ensure 1 can PO BID 03/01/23 [History] Enoxaparin [Lovenox] 40 mg SQ DAILY #28 each 03/04/23 [Rx] HYDROcodone/APAP 5-325MG [[place] 5-325] 1 tab PO Q6HR PRN #21 tab 03/04/23 [Rx] Sennosides/Docusate Sodium [Senna Plus 8.6-50 mg Softgel] 1 each PO DAILY #20 cap 03/04/23 [Rx] Follow up Appointment(s)/Referral(s): [facility], [NON-STAFF] - 1 Week Alhaji Boggs MD [Primary Care Provider] - 1-2 days Darryl Long DO [Doctor of Osteopathic Medicine] - 2 Weeks Activity/Diet/Wound Care/Special Instructions: Remaining dario to patients head may be removed on Mar 07, [address] Sanchez. Orthopedic Discharge Instructions: 1. Wound care and infection precautions, keep incision dry and covered while showering, no lotions, creams, moisturizers. No soaking, pools, hot tubs. Do not scrub over incision. 2. Weight-bear as tolerated with walker / cane until follow-up. 3. Ice and elevate when necessary. Do not exceed 20 minutes per hour with ice pack. 4. Utilize compression sleeve until seen at first follow up appointment. 5. Pain meds and anticoagulants per prescription. 6. Pain medication has potential to cause constipation. Increase oral fluid and fiber intake. Contact primary care provider if you have not had a bowel movement within 48 hours after discharge. 7. No anti-inflammatory medication until discussed at first post operative visit, this including Motrin, Aleve, Mobic, Diclofenac. 8. Follow up in office at [address] Darryl Long 9. Follow up with your primary care doctor 7-10 days after discharge. 10. Contact [facility] with any questions, . Discharge Disposition: TRANSFER TO SNF/ECF
--- NOTE | 2023-03-04 11:54 | P.PN ---
Subjective Progress Note Date: 03/04/23 Principal diagnosis: Left hip IT fracture Patient seen at bedside this morning lying semirecumbent position with dressing present over the left hip. Patient sitter was present in the room and present during the encounter. Due to the patient's mental state and dementia not much history is able to be obtained. Patient points to the area where she does have pain in the left hip from recent surgery. Patient is able to move digits in left lower extremity. Patient denies chest pain, fever, shortness of breath, nausea, vomiting, change in vision, loss of bowel/bladder control. Objective - Vital Signs Vital signs: Vital Signs Temp 98.7 F 03/04/23 07:15 Pulse 65 03/04/23 07:15 Resp 18 03/04/23 07:15 BP 124/67 03/04/23 07:15 Pulse Ox 95 03/04/23 07:15 FiO2 21 03/02/23 08:25 Intake & Output 03/03/23 03/04/23 03/04/23 18:59 06:59 18:59 Intake Total 0 Output Total 400 Balance 0 -400 Intake: Intake, IV Titration 0 Amount Sodium Chloride 0.9% 1, 0 000 ml @ 75 mls/hr IV . [id number] [facility] Rx#:[id number] Output: Urine 400 Other: Voiding Method Indwelling Catheter Indwelling Catheter Diaper Incontinent - Exam Left hip: Incision is clean, dry, and intact. The silver foam dressing is in good condition. Minimal spotting. There is a fair amount of tenderness to palpation diffusely over the left hip near the incision. Nontender to palpation throughout rest of exam. There is minimal soft tissue swelling and ecchymosis surrounding the medial and lateral aspects of the incision. Calf is soft, no tenderness with palpation. Plantar flexion, dorsiflexion, EHL, FHL are intact. Sensory exam to light touch throughout the extremity is intact, dorsal pedis pulses 2+. - Labs CBC & Chem 7: 03/02/23 06:33 03/02/23 06:33 Assessment and Plan Assessment: 1. Left hip IT fracture - Postop day #3 status post left hip IM nail Plan: 1. Left hip IT fracture - patient stable at bedside this morning. Pain medication as needed. Continue PT/OT daily. Discharge to rehab today. 2. Appreciate medical management 3. Pain management - Selene Canoenol; Tylenol 4. DVT prophylaxis - Lovenox 5. GI prophylaxis - senna; Protonix 6. PT/OT - weightbearing as tolerated with walker and assistance 7. Encourage incentive spirometer use 8. Discharge planning - discharge to rehab today Time with Patient: Less than 30
--- NOTE | 2023-03-04 14:52 | P.PN ---
Subjective Progress Note Date: 03/04/23 (delayed charting seen at 0930) Patient is a an 87-year-old female with history of dementia, hypertension, and dyslipidemia who presented to the ER after a fall. She was subsequently found to have a left hip fracture was admitted to orthopedic surgery with our group to consult. Patient seen and examined at bedside. Initially when I asked her is having hip pain she tells is not bothering her much. Once I removed that she does complain of left hip pain. She denies any chest pain or shortness of breath. She is pleasantly confused. Vital signs reviewed General: nontoxic, no distress, appears at stated age Cardiovascular: S1S2 reg, no murmur, positive posterior tibial pulse bilateral, Head: Scalp laceration shows variable healing but does show a hair trapped within dario. Lungs: CTA bilateral, no rhonchi, no rales , no accessory muscle use Abdominal: soft, nontender to palpation, no guarding, no appreciable organomegaly Ext: no gross muscle atrophy, no edema b/l lower extremities, no contractures Neuro: CN II-XI grossly intact, no focal neuro deficits Psych: Alert, oriented to selfa, appropriate affect Assessment/Plan: Left hip fracture status post left hip IM nailing -Management per orthopedic services Hypertension, controlled -Norvasc 5 mg daily and lisinopril 20 mg daily -Follow blood pressures Dementia with behavioral disturbances Lamictal 100 mg twice daily and Depakote 250 mg twice daily -Continue to hold deseryl and Seroquel -PT/OT -Fall precautions Acute blood loss anemia -Anticipated outcome of surgery -No indication for transfusion -Follow CBC in AM Scalp dario from prior fall -Removed 4 staple on 03/03, suggest monitoring and considering removal of other 4 on 03/07 Home med rec addressed for discharge. Orders added Imaging: None new Data Review: Vitals reviewed and afebrile for the last 24 hours. Pulse 65, respirations 18, blood pressure 124/67, O2 sat 95% on 2 L Thank you for allowing us to participate in the care of this pleasant patient. Do not hesitate to contact us with questions. Someone can be reached from the [facility] hospitalist group all hours of the day at [phone] or via [employer]. This dictation was prepared using [employer] voice recognition software. Though every attempt is made to correct errors during dictation some may still exist. Objective - Vital Signs Vital signs: Vital Signs Temp 98.7 F 03/04/23 07:15 Pulse 65 03/04/23 07:15 Resp 18 03/04/23 07:15 BP 124/67 03/04/23 07:15 Pulse Ox 95 03/04/23 07:15 FiO2 21 03/02/23 08:25 Intake & Output 03/03/23 03/04/23 03/04/23 18:59 06:59 18:59 Intake Total 0 Output Total 400 Balance 0 -400 Intake: Intake, IV Titration 0 Amount Sodium Chloride 0.9% 1, 0 000 ml @ 75 mls/hr IV . [id number] [facility] Rx#:[id number] Output: Urine 400 Other: Voiding Method Indwelling Catheter Indwelling Catheter Diaper Incontinent - Labs CBC & Chem 7: 03/02/23 06:33 03/02/23 06:33
--- NOTE | 2023-03-05 17:37 | P.OP ---
Date of Procedure: 03/01/23 Preoperative Diagnosis: 1. LEFT HIP INTERTROCHANTERIC FRACTURE 4 PART, DISPLACED 2. FFS 3. DEMENTIA 4. COMPLEX MEDICAL PATIENT Postoperative Diagnosis: 1. LEFT HIP INTERTROCHANTERIC FRACTURE 4 PART, DISPLACED 2. FFS 3. DEMENTIA 4. COMPLEX MEDICAL PATIENT Procedure(s) Performed: 1. LEFT HIP INTRAMEDULLARY NAIL FIXATION ([id number]) Implants: -ALLEN AND NEPHEW INTERTAN SHORT 125 90 LAG, 85 COMPRESSION, 37.5 LOCKING Anesthesia: GETA Surgeon: Darryl Long Field Court Researcher #1: Enid Devlin (Enid Devlin, EMERGENCY VEHICLE OPERATIONS INSTRUCTOR Was present and assisted with all aspects of the case from positioning to dressing placement) Estimated Blood Loss (ml): 200 IV fluids (ml): 1,100 Urine output (ml): 330 Pathology: none sent Condition: stable Disposition: PACU Indications for Procedure: Leela Whalen is a 87-year-old female presenting for evaluation of sudden onset left hip pain, inability to ambulate after fall from standing. It was my pleasure to have seen and examined Leela Whalen. In our visit today we have had a chance to go over subjective complaints, p hysical examination findings and treatments including the natural course history without intervention and various interventional options. her imaging demonstrates left intertrochanteric fracture four-part displaced. On physical exam, Leela Macarioandemonstrates pain with motion of left lower extremity, which is NV intact at this time. I have explained to the patient that this fracture needs stabilization. Based on the patients imaging, physical exam, and the rapid progression and disabling griffin ure of her symptoms, at this time I recommend surgery in the form or a: intramedullary nail fixation left hip I discussed the risk and benefits of this procedure at length with Leela Whalen and her family at bedside. Questions were invited and answered, and the patient wishes to proceed as outlined below. Currently, I am recommendin. intramedullary nail fixation left hip Description of Procedure: LEFT hip short IMN The patient was seen and examined in the preoperative area. All preoperative protocols were followed. Informed consent was obtained, risks and benefits of the procedure were discussed at length. Risks including bleeding infection damage to the surrounding tissue and risk of reoperation were discussed with the patient. Risk of anesthesia up to and including was discussed with the patient. These are outlined in the risk reviewed. They were willing to accept these risks and all of the risks of surgery. The patient was given a weight- based dose of antibiotics in the form of 2 g Ancef. The patient was seen and evaluated by the anesthesia team who deemed them fit for surgery. The site was marked, the patient was willing to proceed with the procedure. The patient was transferred to the operative suite by the Department of anesthesia. They were then drifted off to sleep by the department of anesthesia andGETA anesthesia was used. Once adequate anesthesia had been obtained the patient was carefully transferred to the operative bed. All bony prominences were padded accordingly. SCDs were placed on the nonoperative lower extremities. Arms were well padded. The patient was transferred to the Maggie table and her Left leg was placed in a Maggie boot and secured to the table. The left leg was placed in a well-leg villela well padded and secured. The post was placed and she was secured appropriately. arms were placed on arm boards and well-padded Preoperative briefing was done with the operative team and everyone was ready for the procedure to start. Xray used to reduce the fracture with Maggie table. The patient's left leg was then prepped and draped in the normal sterile fashion. Timeout was then performed and all parties in agreement with the procedure to be performed. X-ray was then used to derrick 2 cm proximal to the GT. Skin incision made in line with the femur and blunt dissection taken down to the deep facia which was split. Blut dissetion then taken down to the tip of the GT and the sharp awl used. Optimal starting point achieved on AP and Lateral imaging. Awl was then advanced into the proximal femur. Ball tip guidewire was then passed into the femur. It was confirmed on Ap and laterl. Opening reamer then passed followed by 9, 11 and 13 mm reamers. Then the nail was selected and impacted into place over the wire using flouroscopic guidance. Once in position the lateral guide was placed and skin incisoin made in line with the femur over the lateral aspect. Dissection taken down through the tensor facia which was split inline with its fibers. The guide was seated against bone. Pin was placed through guide for the lag screw to be with in 10mm on Ap and lateral of the subchondarl bone. This was then measured. Appropriate sized compression screw then selected and drilled. Then the lag screw drilled. Lag screw placed over the wire followed by the compression screw. About 7 mm of compression was achieved. Good alignment in AP and lateral shown. The nail was then locked proximally. Distal locking screw was then placed through the jig using similar technique. Screw was drilled and measured and placed. AP and lateral confirmed good placement and good fracture reduction as well as stability in ROM. The guid was then removed from the nail. The wound was then copiously irrigated with normal sterile saline final AP and lateral fluoroscopic imaging confirmed good placement of pins as well as reduction of fracture. The deep fascia was then closed with 0 Vicryl superficial closed 2-0 Vicryl and skin closed with skin dario the wound edges approximated very well. The wound was then cleaned and dressed with an optifoam dressing. The patient was then transferred back to their hospital bed. There were awakened by department of anesthesia having tolerated the procedure very well with no complications. The patient was then transported to the postoperative care unit in stable condition.
== END 2023-03-04 13:30 | disposition home health service (06) | DRG 481 ==
LOC: EC 21:17 → 5NMEDONC 03-01 00:16
PROVIDERS: ADMIT Orthopaedic Surgery; ATTEND Orthopaedic Surgery
PROC: 0QS736Z Reposition Left Upper Femur with Intramedullary Internal Fixation Device, Percutaneous Approach (ICD-10-PCS; principal; 2023-03-01 08:50)
DX: S72.142A Displaced intertrochanteric fracture of left femur, initial encounter for closed fracture (principal); D62 Acute posthemorrhagic anemia; F03.C4 Unspecified dementia, severe, with anxiety; F03.C18 Unspecified dementia, severe, with other behavioral disturbance; F03.C3 Unspecified dementia, severe, with mood disturbance; W18.30XA Fall on same level, unspecified, initial encounter; Y92.099 Unspecified place in other non-institutional residence as the place of occurrence of the external cause; S01.01XA Laceration without foreign body of scalp, initial encounter; R00.1 Bradycardia, unspecified; R29.6 Repeated falls; K44.9 Diaphragmatic hernia without obstruction or gangrene; I10 Essential (primary) hypertension; F31.9 Bipolar disorder, unspecified; E78.5 Hyperlipidemia, unspecified; Z79.899 Other long term (current) drug therapy; Z85.038 Personal history of other malignant neoplasm of large intestine; Z87.891 Personal history of nicotine dependence
CPT/HCPCS: 36415; 70450; 71045; 72125; 73501; 73502; 80053; 82550; 82553; 83605; 83735; 83880; 84100; 84484; 85025; 85610; 85730; 93005; 94760; 96361; 96374; 96376; 99285

== ENCOUNTER 2023-03-08 12:41 | Emergency (ER) | payer MEDICARE ==
[2023-03-08 12:50] VITALS: TEMP 97.7
--- NOTE | 2023-03-08 13:27 | ED ---
General Adult HPI - General Chief complaint: Altered Mental Status Stated complaint: Altered Mental Status Time Seen by Provider: 03/08/23 12:45 Source: EMS Mode of arrival: EMS Limitations: no limitations - History of Present Illness Initial comments: Dictation was produced using [employer] dictation software. please excuse any grammatical, word or spelling errors. Chief Complaint: 87-year-old female presents emergency department for altered mental status History of Present Illness: Is an 87-year-old female she has history of shu ia. Patient recently underwent hip surgery. She was [facility] to [facility]. Today she was found to be altered and minimally responsive. States that's outside her usual norm. She is currently resident [facility]. Patient uncooperative states that she feels a symptomatic at this time. Daily states to leave her alone so she can sleep Unable to obtain ROS secondary to mental status - Related Data Home Medications Medication Instructions Recorded Confirmed Cholecalciferol [Vitamin D3 (25 50 mcg PO DAILY 12/26/22 03/01/23 Mcg = 1000 Iu)] Multivit-Min/Iron/Folic/Lutein 1 tab PO DAILY 12/26/22 03/01/23 [Centrum Silver Women Tablet] Omeprazole [PriLOSEC] 20 mg PO DAILY PRN 12/26/22 03/01/23 Rivastigmine 9.5MG/24Hr Patch 1 patch TRANSDERM Q24HR 12/26/22 03/01/23 [Exelon 9.5MG/24Hr Patch] amLODIPine [Norvasc] 5 mg PO DAILY 12/26/22 03/01/23 lamoTRIgine [LaMICtal] 100 mg PO BID 12/26/22 03/01/23 lisinopriL [Zestril] 20 mg PO DAILY 12/26/22 03/01/23 Atorvastatin [Lipitor] 10 mg PO HS 03/01/23 03/01/23 Divalproex [Depakote] 250 mg PO BID 03/01/23 03/01/23 Ensure 1 can PO BID 03/01/23 03/01/23 Previous Rx's Medication Instructions Recorded Enoxaparin [Lovenox] 40 mg SQ DAILY #28 each 03/04/23 HYDROcodone/APAP 5-325MG [[place] 1 tab PO Q6HR PRN #21 tab 03/04/23 5-325] Sennosides/Docusate Sodium [Senna 1 each PO DAILY #20 cap 03/04/23 Plus 8.6-50 mg Softgel] Allergies Allergy/AdvReac Type Severity Reaction Status Date / Time No Known Allergies Allergy Verified 03/08/23 12:50 Review of Systems ROS Statement: Those systems with pertinent positive or pertinent negative responses have been documented in the HPI. ROS Other: All systems not noted in ROS Statement are negative. Past Medical History Past Medical History: Cancer, Dementia Additional Past Medical History / Comment(s): hx of colon cancer History of Any Multi-Drug Resistant Organisms: None Reported Past Surgical History: Joint Replacement Past Anesthesia/Blood Transfusion Reactions: No Reported Reaction Past Psychological History: Anxiety, Bipolar Smoking Status: Former smoker Past Alcohol Use History: None Reported Past Drug Use History: None Reported General Exam - General Exam Comments Initial Comments: PHYSICAL EXAM: General Impression: Alert and oriented x3, not in acute distress, pinpoint pupils HEENT: Normocephalic atraumatic, extra-ocular movements intact, pupils equal and reactive to light bilaterally, mucous membranes moist. Cardiovascular: Heart regular rate and rhythm Chest: Able to complete full sentences, no retractions, no tachypnea Abdomen: abdomen soft, non-tender, non-distended, no organomegaly Musculoskeletal: Pulses present and equal in all extremities, no peripheral edema Motor: no focal deficits noted Neurological: CN II-XII grossly intact, no focal motor or sensory deficits noted Skin: Intact with no visualized rashes Psych: Normal affect and mood Limitations: no limitations Course Vital Signs 03/08/23 03/08/23 03/08/23 12:44 14:39 15:24 Temperature 97.7 F Pulse Rate 83 70 Respiratory 20 16 16 Rate Blood Pressure 110/61 98/51 O2 Sat by Pulse 98 97 Oximetry EKG Findings - EKG Comments: EKG Findings:: My EKG interpretation: Ventricular rate 79, sinus rhythm,. 151, QRS 91, QTC 419. No MN prolongation, no QTC prolongation, no ST or T-wave changes noted. Overall, this EKG is unremarkable Medical Decision Making - Medical Decision Making Was pt. sent in by a medical professional or institution (, PA, [facility], urgent care, hospital, or [facility]...) When possible be specific @ -No Did you speak to anyone other than the patient for history (EMS, parent, family, police, friend...)? What history was obtained from this source @ -No Did you review nursing and triage notes (agree or disagree)? Why? @ -I reviewed and agree with nursing and triage notes Were old charts reviewed (outside hosp., previous admission, EMS record, old EKG, old radiological studies, urgent care reports/EKG's, [facility] records)? Report findings @ -No old charts were reviewed Differential Diagnosis (chest pain, altered mental status, abdominal pain women, abdominal pain men, vaginal bleeding, musculoskeletal, weakness, fever, dyspnea, syncope, headache, dizziness, GI bleed, back pain, seizure, CVA, palpatations, mental health)? @ -Differential Altered Mental Status: Hypoglycemia, DKA, hypercapnia, ETOH, overdose, CO poisoning, trauma, myxedema coma, HTN encephalopathy, infection, encephalitis, psychosis, intercranial hemorrhage, hepatic encephalopathy, meningitis, CVA, this is not meant to be an all-inclusive list EKG interpreted by me (3pts min.). @ -See above X-rays interpreted by me (1pt min.). @ -None done CT interpreted by me (1pt min.). @ -The scan the brain shows no acute processes. U/S interpreted by me (1pt. min.). @ -None done What testing was considered but not performed or refused? (CT, X-rays, U/S, labs)? Why? @ -None What meds were considered but not given or refused? Why? @ -None Did you discuss the management of the patient with other professionals (professionals i.e. , PA, [employer], lab, RT, psych nurse, social service manager, occ ther, teacher, school services officer, immigration case worker)? Give summary @ -No Was smoking cessation discussed for >3mins.? @ -No Was critical care preformed (if so, how long)? @ -No Were there social determinants of health that impacted care today? How? (Homelessness, low income, unemployed, alcoholism, drug addiction, transportation, low edu. Level, literacy, decrease access to med. care, penitentiary, rehab)? @ -No Was there de-escalation of care discussed even if they declined (Discuss DNR or withdrawal of care, Hospice)? DNR status @ -No What co-morbidities impacted this encounter? (DM, HTN, Smoking, COPD, CAD, Cancer, CVA, ARF, Chemo, Hep., AIDS, mental health diagnosis, sleep apnea, morbid obesity)? @ -None Was patient admitted / discharged? Hospital course, mention meds given and route, prescriptions, significant lab abnormalities, going to OR and other pertinent info. @ -87 Year-old female presents emergency department for altered mental status and lethargy. Vital signs are stable. He is unremarkable. Laboratory evaluation is within acceptable limits. Clinical presentation consistent with opiate toxicity. Patient given small dose of Narcan improvement of mentation. Patient be discharge back to [facility]. Undiagnosed new problem with uncertain prognosis? @ -No Drug Therapy requiring intensive monitoring for toxicity (Heparin, Nitro, Insulin, Cardizem)? @ -No Were any procedures done? @ -No Diagnosis/symptom? Acute, or Chronic, or Acute on Chronic? Uncomplicated (without systemic symptoms) or Complicated (systemic symptoms)? @ -Opiate toxicity Side effects of treatment? @ -No Exacerbation, Progression, or Severe Exacerbation? @ -No Poses a threat to life or bodily function? How? (Chest pain, USA, PR, pneumonia, PE, COPD, DKA, ARF, appy, cholecystitis, CVA, Diverticulitis, Homicidal, Suic idal, threat to staff... and all critical care pts) @ -No - Lab Data Result diagrams: 03/08/23 13:23 03/08/23 13:23 Lab Results 03/08/23 03/08/23 03/08/23 Range/Units 13:23 13:23 13:23 WBC 12.4 H (3.8-10.6) k/uL RBC 3.86 (3.80-5.40) m/uL Hgb 12.7 (11.4-16.0) gm/dL Hct 37.6 (34.0-46.0) % MCV 97.4 (80.0-100.0) fL MCH 33.0 (25.0-35.0) pg MCHC 33.9 (31.0-37.0) g/dL RDW 13.7 (11.5-15.5) % Plt Count 472 H (150-450) k/uL MPV 7.6 Neutrophils % 85 % Lymphocytes % 9 % Monocytes % 5 % Eosinophils % 1 % Basophils % 0 % Neutrophils # 10.5 H (1.3-7.7) k/uL Lymphocytes # 1.1 (1.0-4.8) k/uL Monocytes # 0.6 (0-1.0) k/uL Eosinophils # 0.1 (0-0.7) k/uL Basophils # 0.0 (0-0.2) k/uL Sodium 134 L (137-145) mmol/L Potassium 3.7 (3.5-5.1) mmol/L Chloride 97 L (98-107) mmol/L Carbon Dioxide 32 H (22-30) mmol/L Anion Gap 5 mmol/L BUN 21 H (7-17) mg/dL Creatinine 0.76 (0.52-1.04) mg/dL Est GFR (CKD-EPI)AfAm 83 (>60 ml/min/1.73 sqM) Est GFR (CKD-EPI)NonAf 72 (>60 ml/min/1.73 sqM) Glucose 128 H (74-99) mg/dL Calcium 8.9 (8.4-10.2) mg/dL Magnesium 2.0 (1.6-2.3) mg/dL Urine Color Yellow Urine Appearance Clear (Clear) Urine pH 8.0 (5.0-8.0) Ur Specific [place] 1.014 (1.001-1.035) Urine Protein Negative (Negative) Urine Glucose (UA) Negative (Negative) Urine Ketones Trace H (Negative) Urine Blood Negative (Negative) Urine Nitrite Negative (Negative) Urine Bilirubin Negative (Negative) Urine Urobilinogen <2.0 (<2.0) mg/dL Ur Leukocyte Esterase Negative (Negative) Disposition Clinical Impression: Opiate antagonist poisoning Disposition: HOME SELF-CARE Condition: Good Instructions (If sedation given, give patient instructions): Altered Mental Status (ED), Hydrocodone/Acetaminophen (By mouth) Additional Instructions: please reduce norco administration to avoid opiate toxicity. Is patient prescribed a controlled substance at d/c from ED?: No Referrals: Alhaji Boggs MD [Primary Care Provider] - 1-2 days Time of Disposition: 15:31
[2023-03-08 13:57] LABS: Basophils % (A) 0 %; Eosinophils # (A) 0.1 k/uL (0-0.7); Eosinophils % (A) 1 %; HCT 37.6 % (34.0-46.0); HGB 12.7 gm/dL (11.4-16.0); Lymphocytes # (A) 1.1 k/uL (1.0-4.8); Lymphocytes % (A) 9 %; MCHC 33.9 g/dL (31.0-37.0); MCV 97.4 fL (80.0-100.0); Mean Platelet Volume 7.6; Monocytes # (A) 0.6 k/uL (0-1.0); Monocytes % (A) 5 %; Neutrophils # (A) 10.5 k/uL (1.3-7.7); Neutrophils % (A) 85 %; Platelet Count 472 k/uL (150-450); RBC 3.86 m/uL (3.80-5.40); RDW 13.7 % (11.5-15.5); WBC 12.4 k/uL (3.8-10.6)
[2023-03-08 13:59] LABS: Appearance,Urine Clear (Clear); Bilirubin,Urine Negative (Negative); Blood,Urine Negative (Negative); Color,Urine Yellow; Glucose,Urine (UA) Negative (Negative); Ketones,Urine Trace (Negative); Leukocyte Esterase,Urine Negative (Negative); Nitrite,Urine Negative (Negative); Protein,Urine Negative (Negative); Specific Gravity,Urine 1.014 (1.001-1.035); Urobilinogen,Urine <2.0 mg/dL (<2.0)
[2023-03-08 14:07] LABS: African American GFR (CKD) 83 (>60 ml/min/1.73 sqM); Anion Gap 5 mmol/L; Blood Urea Nitrogen 21 mg/dL (7-17); Calcium 8.9 mg/dL (8.4-10.2); Carbon Dioxide 32 mmol/L (22-30); Chloride 97 mmol/L (98-107); Glucose 128 mg/dL (74-99); Non-African American GFR(CKD) 72 (>60 ml/min/1.73 sqM); Potassium 3.7 mmol/L (3.5-5.1); Sodium 134 mmol/L (137-145)
[2023-03-08] MEDS ORDERED: NALOXONE 0.4 MG/ML 1 ML VIAL IV PRN (14:17)
[2023-03-08] MEDS ORDERED: SODIUM CHLORIDE 0.9% 1,000 ML IV SCH (14:30)
[2023-03-08] MEDS ORDERED: SODIUM CHLORIDE 0.65% NASAL SPRAY 44 ML BTL NASAL SCH (14:30)
[2023-03-08 14:41] VITALS: RESP 16
--- NOTE | 2023-03-08 14:53 | CT ---
EXAMINATION TYPE: CT brain wo con CT DLP: 1099 mGycm, Automated exposure control for dose reduction was used. DATE OF EXAM: 03/08/2023 2:20 PM COMPARISON: 02/28/2023. CLINICAL INDICATION:Female, 87 years old with history of ams, Altered mental status TECHNIQUE: Brain: Axial CT images of the brain were obtained with coronal and sagittal reformats created and rev iewed. Contrast used: None. Oral contrast used: None. FINDINGS: Brain: Extra-axial spaces: No abnormal extra-axial fluid collections. Ventricular system: Dilatation in proportion to cerebral atrophy. Cerebral parenchyma: No acute intraparenchymal hemorrhage or mass effect. The edgar-white junction is well differentiated. Scattered hypoattenuating areas are seen within the white matter. Cerebellum: Unremarkable. Mass effect: No evidence of midline shift. Intracranial vasculature: Atherosclerotic calcifications of the intracranial vessels. Soft tissues: Normal. Calvarium/osseous structures: No depressed skull fracture. Paranasal sinuses and mastoid air cells: Mild scattered paranasal sinus disease. Visualized orbits: Orbital contents are intact. IMPRESSION: 1. No acute intracranial process. 2. Nonspecific white matter changes, likely secondary to chronic small vessel ischemic disease.
[2023-03-08] MEDS ORDERED: NALOXONE 0.4 MG/ML 1 ML VIAL IVP STA (15:21)
[2023-03-08 16:13] VITALS: BP 104/54; PULSE 83
== END 2023-03-08 16:14 | disposition home or self-care (01) ==
LOC: EC 12:41
DX: T50.7X1A Poisoning by analeptics and opioid receptor antagonists, accidental (unintentional), initial encounter (principal); F03.90 Unspecified dementia, unspecified severity, without behavioral disturbance, psychotic disturbance, mood disturbance, and anxiety; F41.9 Anxiety disorder, unspecified; F31.9 Bipolar disorder, unspecified; Z87.891 Personal history of nicotine dependence; Z79.899 Other long term (current) drug therapy
CPT/HCPCS: 99285; 96374; 96361 ×2; 36415; 93005; 80048; 83735; 85025; 81003; 70450; J2310